=== PATIENT | female | born 1975 | race Caucasian/White ===

== ENCOUNTER 2017-07-18 20:49 | Emergency (ER) | payer BC, OTHER ==
[2017-07-18 20:55] VITALS: BP 105/71
[2017-07-18 21:39] LABS: CHLORIDE,CL 100 mmol/L (98-107); SODIUM,NA 134 mmol/L (136-145)
[2017-07-18] MEDS ORDERED: Potassium Chloride 10 MEQ Tab.ER PO ONE (22:21)
[2017-07-18] MEDS ORDERED: Ketorolac 60 MG/2 ML SDV IM ONE (22:21)
--- NOTE | 2017-07-18 22:26 | EDM.PDOC ---
ED HPI GENERAL MEDICAL PROBLEM - General Chief Complaint: General Stated Complaint: chest, back pain, dyspnea Time Seen by Provider: 07/18/17 21:19 - History of Present Illness INITIAL COMMENTS - FREE TEXT/NARRATIVE: Patient developed mid back pain near bra line earlier today. Gradually worsened in intensity. Eventually it felt like the pain wrapped around to the front. Breathing deeply aggravated pain, but patient denies symptoms such as actual wheezing or sensation that she cannot breathe. Pain is to left of midline. No history of similar pain per patient. No recent trauma, new lifting, change in activity. No illness. She does however work at the [employer] home and has some lifting there. No other complaints. 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: Reports: Acetaminophen, Other Medication(s) Chest Pain Score (Numeric/FACES): 10 - Related Data Allergies Allergy/AdvReac Type Severity Reaction Status Date / Time No Known Allergies Allergy Verified 07/18/17 20:50 Home Meds: Home Meds MV,Ca,Min/Iron Fum/FA/Vit K [Multi For Her Tablet] 1 tab PO DAILY 03/21/15 [ History] clonazePAM [Clonazepam] 1 mg PO BEDTIME 10/19/15 [History] Acetaminophen [Tylenol Arthritis Pain] 1,300 mg PO Q8H PRN 07/18/17 [History] oxyCODONE 5 mg PO Q6H PRN 07/18/17 [History] Past Medical History Gastrointestinal History: Reports: Colon Polyp, Other (See Below) Other Gastrointestinal History: UC Musculoskeletal History: Reports: Neck Pain, Chronic Immunologic History: Reports: Immunosuppression - Infectious Disease History Infectious Disease History: Reports: Measles - Past Surgical History HEENT Surgical History: Reports: Tonsillectomy Female Surgical History: Reports: Breast Implant, Section, Hysterectomy, Tubal Ligation Social & Family History - Tobacco Use Smoking Status *Q: Current Every Day Smoker Years of Tobacco use: 20 Packs/Tins Daily: 0.3 Used Tobacco, but Quit: Yes Month Tobacco Last Used: 03 Second Hand Smoke Exposure: Yes - Caffeine Use Caffeine Use: Reports: Coffee, Soda - Alcohol Use Days Per Week of Alcohol Use: 0 (No previous DWI, etc.) - Recreational Drug Use Recreational Drug Use: No Drug Use in Last 12 Months: No - Living Situation & Occupation Living situation: Reports: , Occupation: Employed ED ROS GENERAL - Review of Systems Review Of Systems: See Below Constitutional: Reports: No Symptoms. Denies: Fever, Chills, Weakness, Fatigue , Night Sweats, Diaphoresis, Decreased Appetite, Weight Loss HEENT: Reports: No Symptoms. Denies: Rhinitis, Throat Pain Respiratory: Reports: Shortness of Breath (deep breath makes pain worse. ), Pleuritic Chest Pain. Denies: Wheezing, Cough, Sputum, Hemoptysis Cardiovascular: Reports: Chest Pain (across chest). Denies: Dyspnea on Exertion , Edema, Lightheadedness, Palpitations, Syncope GI/Abdominal: Reports: No Symptoms : Reports: No Symptoms Musculoskeletal: Reports: Neck Pain (chronic, unchanged. ), Back Pain (see HPI) , Muscle Pain. Denies: Shoulder Pain, Arm Pain, Hand Pain, Leg Pain, Joint Pain , Joint Swelling, Muscle Stiffness Skin: Reports: No Symptoms Neurological: Reports: Other (Patient has noticed that she cannot dorsiflex left foot as high as the right for the past 6+ months). Denies: Confusion, Dizziness, Headache, Numbness, Paresthesia, Syncope, Tremors, Trouble Speaking, Difficulty Walking Psychiatric: Reports: No Symptoms Hematologic/Lymphatic: Reports: No Symptoms ED EXAM, GENERAL - Physical Exam Exam: See Below Exam Limited By: No Limitations General Appearance: Alert, WD/WN, No Apparent Distress Eye Exam: Bilateral Eye: EOMI, PERRL Ears: Normal External Exam, Normal Canal Nose: Normal Inspection, Normal Mucosa, No Blood Throat/Mouth: Normal Inspection, Normal Lips, Normal Voice, No Airway Compromise Head: Atraumatic, Normocephalic Neck: Normal Inspection, Supple, Non-Tender, Full Range of Motion. No: Tender Lateral, Tender Midline Respiratory/Chest: No Respiratory Distress, Lungs Clear, Normal Breath Sounds, No Accessory Muscle Use, Chest Non-Tender Cardiovascular: Normal Peripheral Pulses, Regular Rate, Rhythm, No Edema, No Murmur Peripheral Pulses: 2+: Radial (L), Radial (R) GI/Abdominal: Normal Bowel Sounds, Soft, Non-Tender, No Distention (Female) Exam: Deferred Rectal (Female) Exam: Deferred Back Exam: Paraspinal Tenderness (to left of spine around left scapula). No: Muscle Spasm, Vertebral Tenderness Extremities: Normal Inspection, Non-Tender, Normal Capillary Refill Neurological: Alert, Oriented, Normal Cognition, Normal Gait, No Motor/Sensory Deficits Psychiatric: Normal Affect, Normal Mood Skin Exam: Warm, Dry, Intact, Normal Color EKG INTERPRETATION EKG Date: 07/18/17 Time: 21:03 Rhythm: NSR Rate (Beats/Min): 88 Irons: Normal P-Wave: Present QRS: Normal ST-T: Normal QT: Normal Comparison: No Change Course - Vital Signs Last Recorded V/S: Last Vital Signs Temp 37.0 C 07/18/17 20:54 Pulse 87 07/18/17 20:54 Resp 17 07/18/17 20:54 BP 105/71 07/18/17 20:54 Pulse Ox 100 07/18/17 20:54 - Orders/Labs/Meds Orders: Active Orders 24 hr Category Date Time Status EKG Documentation Completion [RC] STAT Care 07/18/17 20:56 Active Chest 2V [CR] Stat Exams 07/18/17 20:55 Taken EKG 12 Lead [EK] Stat Ther 07/18/17 20:56 Ordered Labs: Laboratory Tests 07/18/17 07/18/17 07/18/17 Range/Units 20:57 21:10 21:10 WBC (4.0-10.2) K/uL RBC (3.77-5.09) M/uL Hgb (11.7-15.5) g/dL Hct (34.0-46.0) % MCV (84.0-98.0) fL MCH (28.2-33.3) pg MCHC (31.7-36.0) g/dL RDW (11.2-14.1) % Plt Count (150-350) K/uL Neut % (Auto) (45.0-80.0) % Lymph % (Auto) (10.0-50.0) % Webb % (Auto) (2.0-14.0) % Eos % (Auto) (0.0-5.0) % Baso % (Auto) (0.0-2.0) % Neut # (Auto) (1.40-7.00) K/uL Lymph # (Auto) (0.50-3.50) K/uL Webb # (Auto) (0.00-1.00) K/uL Eos # (Auto) (0.00-0.50) K/uL Baso # (Auto) (0.00-0.20) K/uL D-Dimer, Quantitative 393 (0-400) ng/mL Sodium (136-145) mmol/L Potassium (3.5-5.1) mmol/L Chloride (98-107) mmol/L Carbon Dioxide (21.0-32.0) mmol/L BUN (7-18) mg/dL Creatinine (0.51-1.17) mg/dL Est Cr Clr Drug Dosing Estimated GFR (MDRD) mL/min Glucose (74-106) mg/dL Calcium (8.5-10.1) mg/dL Total Bilirubin (0.2-1.0) mg/dL AST (15-37) U/L ALT (12-78) U/L Alkaline Phosphatase (46-116) IU/L Creatine Kinase (26-308) U/L Creatine Kinase Index (0.0-2.5) % CK-MB (CK-2) (0.00-3.60) ng/mL Troponin I 0.000 (0.000-0.056) ng/mL Total Protein (6.4-8.2) g/dL Albumin (3.4-5.0) g/dL Specimen Type Urincc Urine Color Yellow Urine Appearance Clear Urine pH 6.0 (5.0-9.0) Ur Specific Orient 1.025 (1.005-1.030) Urine Protein Trace H (NEGATIVE) mg/dL Urine Glucose (UA) 100 H (NEGATIVE) mg/dL Urine Ketones Negative (NEGATIVE) mg/dL Urine Occult Blood Negative (NEGATIVE) Urine Nitrite Negative (NEGATIVE) Urine Bilirubin Negative (NEGATIVE) Urine Urobilinogen 0.2 (0.2-1.0) E.U./dL Ur Leukocyte Esterase Negative (NEGATIVE) Urine RBC 0-5 /HPF Urine WBC 0-5 /HPF Ur Epithelial Cells Rare /LPF Urine Bacteria Rare (NONE TO FEW) /HPF 07/18/17 07/18/17 Range/Units 21:10 21:20 WBC 12.8 H (4.0-10.2) K/uL RBC 3.81 (3.77-5.09) M/uL Hgb 12.0 (11.7-15.5) g/dL Hct 35.7 (34.0-46.0) % MCV 93.7 (84.0-98.0) fL MCH 31.5 (28.2-33.3) pg MCHC 33.6 (31.7-36.0) g/dL RDW 12.5 (11.2-14.1) % Plt Count 216 (150-350) K/uL Neut % (Auto) 70.7 (45.0-80.0) % Lymph % (Auto) 20.8 (10.0-50.0) % Webb % (Auto) 8.0 (2.0-14.0) % Eos % (Auto) 0.3 (0.0-5.0) % Baso % (Auto) 0.2 (0.0-2.0) % Neut # (Auto) 9.05 H (1.40-7.00) K/uL Lymph # (Auto) 2.66 (0.50-3.50) K/uL Webb # (Auto) 1.02 H (0.00-1.00) K/uL Eos # (Auto) 0.04 (0.00-0.50) K/uL Baso # (Auto) 0.03 (0.00-0.20) K/uL D-Dimer, Quantitative (0-400) ng/mL Sodium 134 L (136-145) mmol/L Potassium 3.3 L (3.5-5.1) mmol/L Chloride 100 (98-107) mmol/L Carbon Dioxide 26.2 (21.0-32.0) mmol/L BUN 13 (7-18) mg/dL Creatinine 0.75 (0.51-1.17) mg/dL Est Cr Clr Drug Dosing TNP Estimated GFR (MDRD) > 60 mL/min Glucose 129 H (74-106) mg/dL Calcium 8.0 L (8.5-10.1) mg/dL Total Bilirubin 0.3 (0.2-1.0) mg/dL AST 15 (15-37) U/L ALT 20 (12-78) U/L Alkaline Phosphatase 52 (46-116) IU/L Creatine Kinase 56 (26-308) U/L Creatine Kinase Index 0.4 (0.0-2.5) % CK-MB (CK-2) 0.20 (0.00-3.60) ng/mL Troponin I (0.000-0.056) ng/mL Total Protein 6.8 (6.4-8.2) g/dL Albumin 3.7 (3.4-5.0) g/dL Specimen Type Urine Color Urine Appearance Urine pH (5.0-9.0) Ur Specific Orient (1.005-1.030) Urine Protein (NEGATIVE) mg/dL Urine Glucose (UA) (NEGATIVE) mg/dL Urine Ketones (NEGATIVE) mg/dL Urine Occult Blood (NEGATIVE) Urine Nitrite (NEGATIVE) Urine Bilirubin (NEGATIVE) Urine Urobilinogen (0.2-1.0) E.U./dL Ur Leukocyte Esterase (NEGATIVE) Urine RBC /HPF Urine WBC /HPF Ur Epithelial Cells /LPF Urine Bacteria (NONE TO FEW) /HPF Meds: Medications Discontinued Medications Generic Name Dose Route Start Last Admin Trade Name Freq PRN Reason Stop Dose Admin Ketorolac Tromethamine 60 mg 07/18/17 22:21 07/18/17 22:36 Toradol IM 07/18/17 22:22 60 mg ONETIME ONE Administration Potassium Chloride 20 meq 07/18/17 22:21 07/18/17 22:35 Klor-Con 10 PO 07/18/17 22:22 20 meq ONETIME ONE Administration - Radiology Interpretation Free Text/Narrative:: Chest film unremarkable for acute changes. - Re-Assessments/Exams Free Text/Narrative Re-Assessment/Exam: 07/18/17 22:38 DDimer/Troponin/CKMB negative. No acute ST changes noted on EKG. Patient complaint reproducible with pressure over soft tissue around left scapula. Suspect soft tissue/musculoskeletal cause for patient's complaint. Discussed differential with patient. Toradol given in ER. Patient sent home with take home bottle of Tramadol. She is considering visiting her chiropractor tomorrow. Precautions reviewed prior to discharge. She is to follow up in ER if she has sudden acute worsening problems, otherwise she is to follow up with her primary provider within 1-2 weeks. Departure - Departure Time of Disposition: 22:33 Disposition: Home, Self-Care 01 Condition: Good Clinical Impression: Chest pain, atypical Back pain Qualifiers: Back pain location: thoracic back pain Chronicity: acute Back pain laterality: left Qualified Code(s): M54.6 - Pain in thoracic spine - Discharge Information Instructions: Nonspecific Chest Pain, Thoracic Strain, [id number] Referrals: Rick Melara PA [Primary Care Provider] - Forms: ED Department Discharge, ED Return to Work/School Form Additional Instructions: Icing sore area may help over the next few days. Pressure with tennis ball may also be helpful. Consider chiropractor or massage therapy. Follow up with your primary doctor within the next few days if symptoms persist. Follow up otherwise as needed if you note sudden worsening problems/ new symptoms. Consider taking some extra potassium supplementation, 10-20meq per day. Have potassium rechecked in 10-14 days at your primary provider's office. - My Orders Last 24 Hours: My Active Orders 07/18/17 20:55 Chest 2V [CR] Stat 07/18/17 20:56 EKG Documentation Completion [RC] STAT EKG 12 Lead [EK] Stat - Assessment/Plan Last 24 Hours: My Active Orders 07/18/17 20:55 Chest 2V [CR] Stat 07/18/17 20:56 EKG Documentation Completion [RC] STAT EKG 12 Lead [EK] Stat
== END 2017-07-18 23:04 | disposition home or self-care (01) ==
LOC: LL.ED 20:49
DX: R07.89 Other chest pain (principal); M54.6 Pain in thoracic spine; F17.210 Nicotine dependence, cigarettes, uncomplicated; Z79.899 Other long term (current) drug therapy; Z90.89 Acquired absence of other organs; Z90.710 Acquired absence of both cervix and uterus
CPT/HCPCS: 36415; 71020; 80053; 81001; 82550; 82553; 84484; 85025; 85379; 93005; 96372; 99285; A9270; J1885

== ENCOUNTER 2018-03-07 15:54 | Observation (INO) | payer BC ==
[2018-03-07] MEDS ORDERED: Famotidine 20 MG/2 ML SDV IVPUSH ONE (16:13)
[2018-03-07] MEDS ORDERED: Ticagrelor 90 MG Tab PO ONE (16:13)
[2018-03-07] MEDS ORDERED: Sodium Chloride 0.9% 10 ML Syringe FLUSH PRN ×2 (16:13→17:38)
[2018-03-07] MEDS ORDERED: Aspirin 81 MG Tab.Chew CHEW ONE (16:13)
--- NOTE | 2018-03-07 16:13 | EDM.PDOC ---
ED HPI GENERAL MEDICAL PROBLEM - General Chief Complaint: Cardiovascular Problem Stated Complaint: palpations Time Seen by Provider: 03/07/18 16:05 Source of Information: Reports: Patient, Family (), Old Records ([facility] chart/EMR) History Limitations: Reports: No Limitations - History of Present Illness INITIAL COMMENTS - FREE TEXT/NARRATIVE: Patient was brought to the emergency room via private automobile by her for evaluation of sudden onset tachycardia with heart rate of 170s and systolic blood pressure in the 190s at work at about 15:30 hours. The patient was not performing any strenuous duties at that time. She has had possible symptoms of intermittent arrhythmia for the last several years, however this has not been specifically diagnosed. She does complain of nonspecific retrosternal 4/10 chest discomfort radiating to the neck bilaterally and both shoulders. The patient denies any dizziness, orthostasis, orthopnea, diaphoresis, paresthesias , recent decreased exercise tolerance, or any other anginal-type symptoms. No recent history of abdominal pain, heartburn, nausea, diarrhea, melena, gross hematochezia, or any food intolerance, including fatty foods, etc. with normal bowel movement yesterday. The patient also denies any recent fever, cough, wheezing, dyspnea, etc. with the patient not using any recent cold medications, excessive caffeine use, etc. Onset: Today, Sudden Onset Date: 03/07/18 Onset Time: 15:30 Duration: Constant Location: Reports: Neck, Chest, Upper Extremity, Left, Upper Extremity, Right, Radiates to (As above). Denies: Head, Face, Abdomen, Back, Pelvis Quality: Reports: Pressure Severity: Mild Improves with: Reports: None Worsens with: Reports: None Context: Reports: Other (As above) Associated Symptoms: Reports: Chest Pain. 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 Denies: Afib, Aneurysm, Arrhythmia, Blood Clots/VTE/DVT, CAD, Heart Murmur, High Cholesterol, Hypertension, RI, Syncope Other Cardiovascular History: History of varicose veins Respiratory History: Reports: COPD, Intubation, Previous, Other (See Below). Denies: Asthma, Intubation, Difficult, PE, Pneumothorax, Sleep Apnea, TB Other Respiratory History: COPD by chest x-ray on 03/21/15 Gastrointestinal History: Reports: Colon Polyp, GI Bleed, Inflammatory Bowel Disease, Other (See Below). Denies: Celiac Disease, Cholelithiasis, Chronic Constipation, Chronic Diarrhea, Gastritis, GERD, Hepatitis, Irritable Bowel Syndrome, Jaundice, Pancreatitis, PUD Other Gastrointestinal History: Ulcerative colitis initially diagnosed in about 1998 by colonoscopy with history of recurrent mild lower GI bleeds last episode on 11/20/12. Benign colonic polyp in 2017 Genitourinary History: Reports: Renal Calculus, Other (See Below) Other Genitourinary History: Left-sided urolithiasis on 01/24/15 with spontaneous passage [employer]IC History: Reports: Dysfunctional Uterine Bleeding, Endometriosis, . Denies: Spontaneous : 2 Para: 2 LMP (Approximate): Other (See Below) Other OB/BYN History: Surgical menopause in very to endometriosis. No problems during with full term with second , however full term C- section secondary to breech position and first . Moderate bilateral ovarian cysts Musculoskeletal History: Reports: Arthritis, Neck Pain, Chronic, Osteoarthritis , Other (See Below). Denies: Back Pain, Chronic, Gout, RA, SLE Other Musculoskeletal History: Right ankle fracture 1992 Neurological History: Reports: None. Denies: Cerebral Aneurysms, Concussion, CVA, Headaches, Chronic, Head Trauma, Migraines, MS, Neuropathy, Peripheral, Parkinson's, Seizure, TIA Psychiatric History: Reports: Anxiety, Depression. Denies: Abuse, Victim of, ADD, ADHD, Addiction, Psych Hospitalization(s), PTSD, Suicide Attempt, Suicidal Ideation Endocrine/Metabolic History: Reports: None. Denies: Diabetes, Gestational, Diabetes, Type I, Diabetes, Type II, Diabetes Mellitus, Type 3c, Hypothyroidism , IDDM Hematologic History: Reports: Anemia, Iron Deficiency. Denies: Blood Transfusion(s) Immunologic History: Reports: Immunosuppression, Other (See Below) Other Immunologic History: Venous suppression secondary to current medical therapy for her ulcerative colitis Oncologic (Cancer) History: Reports: None. Denies: Basal Cell Carcinoma, Breast , Cervix, Colon, Hodgkin's Lymphoma, Leukemia, Lymphoma, Malignant Melanoma, Non -Hodgkin's Lymphoma, Ovarian, Squamous Cell Carcinoma, Uterine Dermatologic History: Reports: None. Denies: Eczema, Psoriasis - Infectious Disease History Infectious Disease History: Reports: Measles. Denies: C-Difficile, Chicken Pox , Meningitis, Mononucleosis, MRSA, Mumps, Pertussis (Whooping Cough), Rheumatic Fever, Rubella, Scarlet Fever, Shingles, TB, VRE - Past Surgical History Head Surgeries/Procedures: Reports: None HEENT Surgical History: Reports: Adenoidectomy, Oral Surgery, Tonsillectomy, Other (See Below). Denies: Cataract Surgery, Eye Surgery, Laser Surgery, LASIK , Myringotomy w Tube(s), Naso-Sinus Surgery Other HEENT Surgeries/Procedures: Tonsillectomy at about age 10. [place] teeth extraction 4 at about age 12 Cardiovascular Surgical History: Reports: None. Denies: Varicose Respiratory Surgical History: Reports: None. Denies: Lung Biopsies, Thoracentesis GI Surgical History: Reports: Colonoscopy, Polypectomy, Other (See Below). Denies: Appendectomy, Cholecystectomy, EGD, Hernia, Abdominal, Hernia, Inguinal , Hernia Repair/Other Other GI Surgeries/Procedures: Last colonoscopy in 2017 with polypectomy at that time with previous colonoscopy in 2013 with no polyps at that time Female Surgical History: Reports: Breast Implant, Section, Hysterectomy, Tubal Ligation, Other (See Below). Denies: Cystoscopy, D&C, Oophorectomy, Salpingo-Oophorectomy Other Female Surgeries/Procedures: section in 1997. Hysterectomy secondary to endometriosis and dysfunctional uterine bleeding in about 2008. Bilateral tubal ligation in about 2007. Bilateral breast implants in 2007 Endocrine Surgical History: Reports: None. Denies: Thyroid Biopsy Musculoskeletal Surgical History: Reports: None. Denies: Arthroscopic Knee, Carpal Tunnel, Ganglion Cyst, Joint Replacement, ORIF, Shoulder Surgery Oncologic Surgical History: Reports: None Dermatological Surgical History: Reports: None - Past Imaging History Past Imaging History: Reports: Mammogram (Last mammogram on 09/25/15), MRI (MRI of the lumbar spine on 08/09/17. MRI of the left leg on 09/13/17), Ultrasound ( Pelvic ultrasound on 10/22/15 and 09/25/15). Denies: Angiography, Cardiac Echo , Stress Testing Social & Family History - Family History HEENT: Reports: None. Denies: Glaucoma, Macular Degeneration, Retinal Detachment Cardiac: Reports: CAD, Hypertension, RI, Pacemaker, Stent, Other (See Below). Denies: Afib, Aneurysm, Arrhythmia, Blood Clots/VTE/DVT, Bypass, Heart Failure, Heart Murmur, High Cholesterol, PVD/COD Other Cardiac Family History: Father with RI at age 74 with history of PTCA/ stent at that time. Mother with hypertension. Maternal grandmother with pacemaker Respiratory: Reports: COPD, Sleep Apnea, Other (See Below). Denies: Asthma, PE , Pneumothorax Other Respiratory Family Hisory: Father with history of asbestos exposure, COPD , and sleep apnea GI: Reports: Other (See Below). Denies: Celiac Disease, Cholelithiasis, Colon Polyps, GERD, GI bleed, Inflammatory Bowel Disease, Irritable Bowel Syndrome, PUD Other GI Family History: Brother and paternal uncle with ulcerative colitis : Reports: None. Denies: Dialysis, Renal Calculus, Renal Disease/ Insufficiency OBGYN: Reports: None. Denies: Endometriosis, Recurrent Spontaneous Musculoskeletal: Reports: None. Denies: Gout, RA, SLE Neurological: Reports: None. Denies: Alzheimers Disease, CVA, Dementia, Migraines, MS, Parkinson's, Seizure, TIA Psychiatric: Reports: Anxiety, Depression, Other (See Below). Denies: Abuse, Victim of, ADD, ADHD, Psych Hospitalization(s), PTSD, Suicide Attempt Other Psychiatric Family History: Anxiety depression disorder in sister, brother , and mother. Endocrine/Metabolic: Reports: Diabetes, type II, Hypothyroidism, IDDM, Other ( See Below) Other Endocrine/Metabolic Family History: Paternal grandmother with IDDM. Sister with hypothyroidism Hematologic: Reports: None. Denies: Anemia, SLE Immunologic: Reports: None. Denies: AIDS, HIV, SLE Dermatologic: Reports: None. Denies: Eczema, Psoriasis Oncologic: Reports: Colon, Leukemia, Lung, Other (See Below) Other Oncologic Family History: Fatal colon cancer in maternal grandfather in his 80s. Paternal aunt with leukemia. Paternal grandfather with fatal lung cancer in his 70s possibly secondary to tobacco use. - Tobacco Use Smoking Status *Q: Current Every Day Smoker Tobacco Use Within Last Twelve Months: Cigarettes Years of Tobacco use: 27 Packs/Tins Daily: 0.5 Packs/Tins Daily Comment: Started smoking at age 15 with maximum use of one pack per day Used Tobacco, but Quit: Yes Month/Year Tobacco Last Used: 03 Smoking Cessation Information Provided To Patient: Yes Second Hand Smoke Exposure: Yes Second Hand Smoke Education Provided: Yes - Caffeine Use Caffeine Use: Reports: Coffee (2 cups per day), Soda (1 soda per day). Denies: Energy Drinks, Tea - Alcohol Use Alcohol Use History: No Days Per Week of Alcohol Use: 0 (Previous DWI in 2004 with no previous problems with alcohol abuse or treatment) Number of Drinks Per Day: 0 Number of Drinks Per Day Comment: Does not drink any alcohol currently Total Drinks Per Week: 0 Alcohol Use in Last Twelve Months: No - Recreational Drug Use Recreational Drug Use: No Drug Use in Last 12 Months: No Recreational Drug Type: Reports: Amphetamines (Speed). 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 ED EXAM, GENERAL - Physical Exam Exam: See Below Exam Limited By: No Limitations General Appearance: Alert, WD/WN, No Apparent Distress, Anxious (Mild to moderate) Eye Exam: Bilateral Eye: EOMI, Normal Inspection (No Nystagmus), PERRL Ears: Normal External Exam, Normal Canal, Hearing Grossly Normal, Normal TMs Nose: Normal Inspection, Normal Mucosa, No Blood Throat/Mouth: Normal Inspection, Normal Lips, Normal Teeth, Normal Gums, Normal Oropharynx, Normal Voice, No Airway Compromise. No: Dysphagia, Inflammation, Perioral Cyanosis Head: Atraumatic, Normocephalic. No: Facial Swelling, Facial Tenderness, Sinus Tenderness Neck: Normal Inspection, Supple, Non-Tender, Full Range of Motion. No: Carotid Bruit, Lymphadenopathy (L), Lymphadenopathy (R), Thyromegaly Respiratory/Chest: No Respiratory Distress, Lungs Clear, Normal Breath Sounds, No Accessory Muscle Use, Chest Non-Tender. No: Pleural Rub, Retractions Cardiovascular: Normal Peripheral Pulses, No Edema, No Gallop, No JVD, No Murmur , No Rub, Tachycardia. No: Gallop/S3, Gallop/S4, Friction Rub Peripheral Pulses: 2+: Radial (L), Radial (R), Dorsalis Pedis (L), Dorsalis Pedis (R) GI/Abdominal: Normal Bowel Sounds, Soft, Non-Tender, No Organomegaly, No Distention, No Abnormal Bruit, No Mass, Pelvis Stable, Other (obese). No: Guarding (Female) Exam: Deferred Rectal (Female) Exam: Deferred Back Exam: Normal Inspection, Full Range of Motion. No: CVA Tenderness (L), CVA Tenderness (R), Muscle Spasm Extremities: Normal Inspection, Normal Range of Motion, Non-Tender, No Pedal Edema, Normal Capillary Refill. No: Keyona's Sign Neurological: Alert, Oriented, CN II-XII Intact, Normal Cognition, Normal Gait, Normal Reflexes (Negative Babinski's), No Motor/Sensory Deficits Psychiatric: Anxious (Mild to moderate). No: Depressed Mood Skin Exam: Warm, Dry, Intact, Normal Color, No Rash. No: Diaphoretic, Ecchymosis, Pallor, Petechiae, Wound/Incision Lymphatic: No Adenopathy EKG INTERPRETATION EKG Date: 03/07/18 Time: 16:24 Rhythm: NSR Rate (Beats/Min): 82 [place]: Normal (Neutral) P-Wave: Enlarged (Moderate diffuse biphasic P waves with new pulmonary hypertension by EKG since last EKG on 07/18/17) QRS: Normal (QRS interval 0.07 seconds with T-wave inversion in lead V1) ST-T: Normal (As above. Nonspecific ST changes with no current digoxin therapy) QT: Normal GA/PQ Interval: 0.16 seconds Comparison: Change From Previous EKG (As above) EKG Interpretation Comments: 1. No acute ischemic changes 2. Atrial enlargement-left 3. Pulmonary hypertension by EKG Course - Vital Signs Last Recorded V/S: Last Vital Signs Temp 36.8 C 03/07/18 16:00 Pulse 76 03/07/18 16:34 Resp 20 03/07/18 16:00 BP 108/75 03/07/18 16:34 Pulse Ox 98 03/07/18 16:00 - Orders/Labs/Meds Orders: Active Orders 24 hr Category Date Time Status Cardiac Monitoring [RC] . DIRECTED Care 03/07/18 16:13 Active EKG Documentation Completion [RC] ASDIRECTED Care 03/07/18 16:13 Active Peripheral IV Care [RC] . DIRECTED Care 03/07/18 16:13 Active Pulse Oximetry [RC] CONTINUOUS Care 03/07/18 16:13 Active Up With Assistance [RC] PFP Care 03/07/18 16:13 Active Vital Signs [RC] PFP Care 03/07/18 16:13 Active Nothing per Oral Now Diet [DIET] Diet 03/07/18 Breakfast Active Chest 1V Frontal [CR] Stat Exams 03/07/18 16:13 Ordered LACTIC ACID [CHEM] Stat Lab 03/07/18 16:13 Ordered Sodium Chloride 0.9% [Saline Flush] Med 03/07/18 16:13 Active 10 ml FLUSH ASDIRECTED PRN Obtain Past Medical Record [OM.PC] Urgent Oth 03/07/18 16:13 Active Peripheral IV Insertion Adult [OM.PC] Stat Oth 03/07/18 16:13 Ordered Resuscitation Status Stat Resus Stat 03/07/18 16:13 Ordered EKG 12 Lead [EK] Stat Ther 03/07/18 16:13 Ordered Medication Orders Sodium Chloride (Saline Flush) 10 ml FLUSH ASDIRECTED PRN PRN Reason: Keep Vein Open Last Admin: 03/07/18 16:23 Dose: 10 ml Labs: Laboratory Tests 03/07/18 03/07/18 03/07/18 Range/Units 16:10 16:10 16:10 WBC 9.8 (4.0-10.2) K/uL RBC 4.47 (3.77-5.09) M/uL Hgb 13.6 D (11.7-15.5) g/dL Hct 39.6 (34.0-46.0) % MCV 88.6 D (84.0-98.0) fL MCH 30.4 (28.2-33.3) pg MCHC 34.3 (31.7-36.0) g/dL RDW 13.2 (11.2-14.1) % Plt Count 227 (150-350) K/uL Neut % (Auto) 63.1 (45.0-80.0) % Lymph % (Auto) 29.0 (10.0-50.0) % [place] % (Auto) 6.8 (2.0-14.0) % Eos % (Auto) 0.8 (0.0-5.0) % Baso % (Auto) 0.3 (0.0-2.0) % Neut # (Auto) 6.17 (1.40-7.00) K/uL Lymph # (Auto) 2.84 (0.50-3.50) K/uL [place] # (Auto) 0.67 (0.00-1.00) K/uL Eos # (Auto) 0.08 (0.00-0.50) K/uL Baso # (Auto) 0.03 (0.00-0.20) K/uL PT 10.0 (9.8-11.7) SEC INR 0.9 APTT 24.3 (22.1-29.8) SEC D-Dimer, Quantitative (0-400) ng/mL Sodium 141 (136-145) mmol/L Potassium 3.8 (3.5-5.1) mmol/L Chloride 102 (98-107) mmol/L Carbon Dioxide 31.2 (21.0-32.0) mmol/L BUN 13 (7-18) mg/dL Creatinine 0.80 (0.51-1.17) mg/dL Est Cr Clr Drug Dosing 78.30 mL/min Estimated GFR (MDRD) > 60 mL/min Glucose 102 (74-106) mg/dL Uric Acid 3.5 (2.6-7.2) mg/dL Calcium 8.7 (8.5-10.1) mg/dL Magnesium 2.0 (1.8-2.4) mg/dL Total Bilirubin 0.2 (0.2-1.0) mg/dL AST 20 (15-37) U/L ALT 25 (12-78) U/L Alkaline Phosphatase 75 (46-116) IU/L Creatine Kinase 109 (26-308) U/L Creatine Kinase Index 1.3 (0.0-2.5) % CK-MB (CK-2) 1.40 (0.00-3.60) ng/mL Troponin I 0.000 (0.000-0.056) ng/mL NT-Pro-B Natriuret Pep 54 (0-125) pg/mL Total Protein 7.5 (6.4-8.2) g/dL Albumin 3.9 (3.4-5.0) g/dL TSH, Ultra Sensitive 1.320 (0.358-3.740) mIU/mL 03/07/18 Range/Units 16:13 WBC (4.0-10.2) K/uL RBC (3.77-5.09) M/uL Hgb (11.7-15.5) g/dL Hct (34.0-46.0) % MCV (84.0-98.0) fL MCH (28.2-33.3) pg MCHC (31.7-36.0) g/dL RDW (11.2-14.1) % Plt Count (150-350) K/uL Neut % (Auto) (45.0-80.0) % Lymph % (Auto) (10.0-50.0) % [place] % (Auto) (2.0-14.0) % Eos % (Auto) (0.0-5.0) % Baso % (Auto) (0.0-2.0) % Neut # (Auto) (1.40-7.00) K/uL Lymph # (Auto) (0.50-3.50) K/uL [place] # (Auto) (0.00-1.00) K/uL Eos # (Auto) (0.00-0.50) K/uL Baso # (Auto) (0.00-0.20) K/uL PT (9.8-11.7) SEC INR APTT (22.1-29.8) SEC D-Dimer, Quantitative 250 (0-400) ng/mL Sodium (136-145) mmol/L Potassium (3.5-5.1) mmol/L Chloride (98-107) mmol/L Carbon Dioxide (21.0-32.0) mmol/L BUN (7-18) mg/dL Creatinine (0.51-1.17) mg/dL Est Cr Clr Drug Dosing mL/min Estimated GFR (MDRD) mL/min Glucose (74-106) mg/dL Uric Acid (2.6-7.2) mg/dL Calcium (8.5-10.1) mg/dL Magnesium (1.8-2.4) mg/dL Total Bilirubin (0.2-1.0) mg/dL AST (15-37) U/L ALT (12-78) U/L Alkaline Phosphatase (46-116) IU/L Creatine Kinase (26-308) U/L Creatine Kinase Index (0.0-2.5) % CK-MB (CK-2) (0.00-3.60) ng/mL Troponin I (0.000-0.056) ng/mL NT-Pro-B Natriuret Pep (0-125) pg/mL Total Protein (6.4-8.2) g/dL Albumin (3.4-5.0) g/dL TSH, Ultra Sensitive (0.358-3.740) mIU/mL Meds: Medications Generic Name Dose Route Start Last Admin Trade Name Freq PRN Reason Stop Dose Admin Sodium Chloride 10 ml 03/07/18 16:13 03/07/18 16:23 Saline Flush FLUSH 10 ml ASDIRECTED PRN Administration Keep Vein Open Discontinued Medications Generic Name Dose Route Start Last Admin Trade Name Freq PRN Reason Stop Dose Admin Aspirin 324 mg 03/07/18 16:13 03/07/18 16:19 Aspirin CHEW 03/07/18 16:14 324 mg ONETIME ONE Administration Diltiazem HCl 10 mg 03/07/18 16:15 03/07/18 16:21 Diltiazem IVPUSH 03/07/18 16:16 10 mg ONETIME ONE Administration Diltiazem HCl 120 mg 03/07/18 16:29 03/07/18 16:34 Cardizem Cd PO 03/07/18 16:30 120 mg ONETIME ONE Administration Famotidine 40 mg 03/07/18 16:13 03/07/18 16:25 Pepcid IVPUSH 03/07/18 16:14 40 mg ONETIME ONE Administration Ticagrelor 180 mg 03/07/18 16:13 03/07/18 16:19 Brilinta PO 03/07/18 16:14 180 mg ONETIME ONE Administration - Radiology Interpretation Free Text/Narrative:: [employer] showed probable PSVT with heart rate in the 130s to 140s on arrival with improvement to the 70s to 80s after IV diltiazem. No other ectopy or significant arrhythmia Chest x-ray, portable, shows evidence of mild to moderate COPD changes with no pulmonary infiltrates, pneumothorax, cardiomegaly, CHF, etc. Departure - Departure Time of Disposition: 17:25 Disposition: Refer to Observation Condition: Good Clinical Impression: PSVT (paroxysmal supraventricular tachycardia), Tobacco abuse counseling, Mixed anxiety depressive disorder, Osteoarthritis Chest pain Qualifiers: Chest pain type: unspecified Qualified Code(s): R07.9 - Chest pain, unspecified Ulcerative colitis Qualifiers: Ulcerative colitis location: other ulcerative colitis Digestive disease complication type: without complication Qualified Code(s): K51.80 - Other ulcerative colitis without complications COPD (chronic obstructive pulmonary disease) Qualifiers: COPD type: emphysema Emphysema type: panlobular Qualified Code(s): J43.1 - Panlobular emphysema Referrals: Rick Melara PA [Primary Care Provider] - Forms: ED Department Discharge Care Plan Goals: See plan - Problem List & Annotations (1) Chest pain SNOMED Code(s): 50740501 Code(s): R07.9 - CHEST PAIN, UNSPECIFIED Status: Acute Priority: High Current Visit: Yes Onset Date: 03/07/18 Annotation/Comment:: Nonspecific chest pain likely secondary to her PSVT. Symptoms completely resolved after tachycardia was resolved. Chest pain protocol was initiated in the emergency immediately upon her arrival. Initiate standard rule out RI orders. Consider cardiology consultation. Lipid panel and glycosylated hemoglobin in the a.m. Patient may benefit from Cardiolite stress test Qualifiers: Chest pain type: unspecified Qualified Code(s): R07.9 - Chest pain, unspecified (2) PSVT (paroxysmal supraventricular tachycardia) SNOMED Code(s): 78438145 Code(s): I47.1 - SUPRAVENTRICULAR TACHYCARDIA Status: Acute Priority: High Current Visit: Yes Onset Date: 03/07/18 Annotation/Comment:: Excellent response to medical therapy as above. (3) Ulcerative colitis SNOMED Code(s): 45380000 Code(s): K51.90 - ULCERATIVE COLITIS, UNSPECIFIED, WITHOUT COMPLICATIONS Status: Acute Priority: High Current Visit: Yes Onset Date: 03/22/15 Annotation/Comment:: The patient has been noncompliant with her sulfasalazine for the last several months and discontinued this medication on her own. Medication compliance strongly encouraged. No recent history of GI bleed or significant exacerbation, however. Qualifiers: Ulcerative colitis location: other ulcerative colitis Digestive disease complication type: without complication Qualified Code(s): K51.80 - Other ulcerative colitis without complications (4) Osteoarthritis SNOMED Code(s): 978309451 Code(s): M19.90 - UNSPECIFIED OSTEOARTHRITIS, UNSPECIFIED SITE Status: Chronic Priority: Medium Current Visit: Yes Annotation/Comment:: Stable by patient history Qualifiers: Osteoarthritis location: multiple joints Osteoarthritis type: primary Qualified Code(s): M15.0 - Primary generalized (osteo)arthritis (5) COPD (chronic obstructive pulmonary disease) SNOMED Code(s): 53447688 Code(s): J44.9 - CHRONIC OBSTRUCTIVE PULMONARY DISEASE, UNSPECIFIED Status : Chronic Priority: Medium Current Visit: Yes Annotation/Comment:: COPD by chest x-ray with continued tobacco abuse. Consider PFTs in the future, although no apparent current problems with recurrent bronchitis, etc.. No recent history of fever, bronchitic type symptoms, etc. Qualifiers: COPD type: emphysema Emphysema type: panlobular Qualified Code(s): J43.1 - Panlobular emphysema (6) Mixed anxiety depressive disorder SNOMED Code(s): 566878361 Code(s): F41.8 - OTHER SPECIFIED ANXIETY DISORDERS Status: Acute Priority : Medium Current Visit: Yes Annotation/Comment:: Stable by patient history at this time, despite no current medical therapy. Moderate control during today 's evaluation. Continue to observe closely by her regular provider (7) Tobacco abuse counseling SNOMED Code(s): 497885998, 354899914, [id number] Code(s): Z71.6 - TOBACCO ABUSE COUNSELING Status: Chronic Priority: Medium Current Visit: Yes Annotation/Comment:: Stop all tobacco use VANESSA as directed/per provided information and consider contacting Quit LIne, etc.. Tobacco cessation information to be provided to the patient and her prior to discharge - Problem List Review Problem List Initiated/Reviewed/Updated: Yes - My Orders Last 24 Hours: My Active Orders 03/07/18 16:13 Cardiac Monitoring [RC] . DIRECTED EKG Documentation Completion [RC] ASDIRECTED Peripheral IV Care [RC] . DIRECTED Pulse Oximetry [RC] CONTINUOUS Up With Assistance [RC] PFP Vital Signs [RC] PFP Chest 1V Frontal [CR] Stat LACTIC ACID [CHEM] Stat Sodium Chloride 0.9% [Saline Flush] 10 ml FLUSH ASDIRECTED PRN Obtain Past Medical Record [OM.PC] Urgent Peripheral IV Insertion Adult [OM.PC] Stat Resuscitation Status Stat EKG 12 Lead [EK] Stat 03/07/18 Breakfast Nothing per Oral Now Diet [DIET] - Assessment/Plan Admission H&P: Please use this note as an admission H&P Last 24 Hours: My Active Orders 03/07/18 16:13 Cardiac Monitoring [RC] . DIRECTED EKG Documentation Completion [RC] ASDIRECTED Peripheral IV Care [RC] . DIRECTED Pulse Oximetry [RC] CONTINUOUS Up With Assistance [RC] PFP Vital Signs [RC] PFP Chest 1V Frontal [CR] Stat LACTIC ACID [CHEM] Stat Sodium Chloride 0.9% [Saline Flush] 10 ml FLUSH ASDIRECTED PRN Obtain Past Medical Record [OM.PC] Urgent Peripheral IV Insertion Adult [OM.PC] Stat Resuscitation Status Stat EKG 12 Lead [EK] Stat 03/07/18 Breakfast Nothing per Oral Now Diet [DIET] Assessment:: As above Plan: As above. Extensive precautions were given to the patient and her , who are in agreement with the treatment plan. The patient's condition is stable enough for observation status and general supervision.
[2018-03-07] MEDS ORDERED: Diltiazem 25 MG/5 ML SDV IVPUSH ONE (16:15)
[2018-03-07] MEDS ORDERED: Diltiazem 120 MG Cap.CD PO ONE (16:29)
[2018-03-07 16:43] LABS: CHLORIDE,CL 102 mmol/L (98-107); SODIUM,NA 141 mmol/L (136-145)
[2018-03-07] MEDS ORDERED: Acetaminophen 325 MG Tab PO PRN (17:38)
[2018-03-07] MEDS ORDERED: Temazepam 15 MG Cap PO PRN (17:38)
[2018-03-07] MEDS ORDERED: SULFADIAZINE PO SCH (18:00)
[2018-03-07] MEDS: sulfaSALAzine 500 MG Tab PO SCH (18:35)
[2018-03-08 07:45] VITALS: BP 98/67
[2018-03-08 08:05] LABS: CHLORIDE,CL 106 mmol/L (98-107); SODIUM,NA 140 mmol/L (136-145)
--- NOTE | 2018-03-08 09:02 | PCM.DCSUM1 ---
Discharge Summary - Hospital Course HPI Initial Comments: See emergency room note/admission H&P Brief History: See emergency room note/admission H&P - Discharge Data Discharge Date: 03/08/18 Discharge Disposition: Home, Self-Care 01 Condition: Good - Discharge Diagnosis/Problem(s) (1) Chest pain SNOMED Code(s): 99368205 ICD Code: R07.9 - CHEST PAIN, UNSPECIFIED Status: Acute Priority: High Current Visit: Yes Onset Date: 03/07/18 Problem Details: Negative workup for acute ID. Nonspecific chest pain likely secondary to her PSVT prior to admission. Symptoms completely resolved after tachycardia was resolved. Chest pain protocol was initiated in the emergency immediately upon her arrival. Various therapeutic options were discussed with the patient, who does not wish to have a Cardiolite stress test at this time with close follow-up by her regular provider area. [place] provided. Consider cardiology consultation depending on her clinical course. Lipid panel is morning was good with pending glycosylated hemoglobin this morning secondary to reagent shortage. Qualifiers: Chest pain type: unspecified Qualified Code(s): R07.9 - Chest pain, unspecified (2) PSVT (paroxysmal supraventricular tachycardia) SNOMED Code(s): 21715720 ICD Code: I47.1 - SUPRAVENTRICULAR TACHYCARDIA Status: Acute Priority: High Current Visit: Yes Onset Date: 03/07/18 Problem Details: Excellent response to medical therapy as above. Blood pressure mildly decreased this morning, however nonsymptomatic. Continue to observe closely through her regular provider. The patient was counseled extensively concerning Valsalva maneuver, etc. for breakthrough tachycardia. (3) Ulcerative colitis SNOMED Code(s): 32441406 ICD Code: K51.90 - ULCERATIVE COLITIS, UNSPECIFIED, WITHOUT COMPLICATIONS Status: Acute Priority: High Current Visit: Yes Onset Date: 03/22/15 Problem Details: The patient has been noncompliant with her sulfasalazine for the last several months and discontinued this medication on her own. Medication compliance was once again strongly encouraged. No recent history of GI bleed or significant exacerbation off of her medication with reinitiation of her sulfasalazine at a decreased standard prophylactic regimen. The patient is in agreement with this treatment plan. Qualifiers: Ulcerative colitis location: other ulcerative colitis Digestive disease complication type: without complication Qualified Code(s): K51.80 - Other ulcerative colitis without complications (4) Osteoarthritis SNOMED Code(s): 362503022 ICD Code: M19.90 - UNSPECIFIED OSTEOARTHRITIS, UNSPECIFIED SITE Status: Chronic Priority: Medium Current Visit: Yes Problem Details: Stable by patient history Qualifiers: Osteoarthritis location: multiple joints Osteoarthritis type: primary Qualified Code(s): M15.0 - Primary generalized (osteo)arthritis (5) COPD (chronic obstructive pulmonary disease) SNOMED Code(s): 21493997 ICD Code: J44.9 - CHRONIC OBSTRUCTIVE PULMONARY DISEASE, UNSPECIFIED Status : Chronic Priority: Medium Current Visit: Yes Problem Details: COPD by chest x-ray with continued tobacco abuse. Consider PFTs in the future, although no apparent current problems with recurrent bronchitis, etc.. No recent history of fever, bronchitic type symptoms, etc. Qualifiers: COPD type: emphysema Emphysema type: panlobular Qualified Code(s): J43.1 - Panlobular emphysema (6) Mixed anxiety depressive disorder SNOMED Code(s): 851576903 ICD Code: F41.8 - OTHER SPECIFIED ANXIETY DISORDERS Status: Acute Priority: Medium Current Visit: Yes Problem Details: Stable by patient history at this time, despite no current medical therapy. Moderate control during today's evaluation. Continue to observe closely by her regular provider (7) Tobacco abuse counseling SNOMED Code(s): 411736760, 878280228, 604521012 ICD Code: Z71.6 - TOBACCO ABUSE COUNSELING Status: Chronic Priority: Medium Current Visit: Yes Problem Details: Stop all tobacco use VANESSA as directed/per provided information and consider contacting Quit [employer]ne, etc.. Tobacco cessation information to be provided to the patient and her prior to discharge (8) Hypoalbuminemia SNOMED Code(s): 422042473 ICD Code: E88.09 - OT DISORDERS OF PLASMA-PROTEIN METABOLISM, NEC Status: Acute Priority: Medium Current Visit: Yes Onset Date: 03/08/18 Problem Details: Initiate high-protein Glucerna supplements 2 times a day as snacks or as 1 meal replacement per day. - Patient Summary/Data Operative Procedure(s) Performed: None Complications: None Consults: None Labs Pending at D/C: Glycosylated hemoglobin Recommended Follow-up Testing/Procedures: As per discharge instructions Planned Operative Procedure(s) after DC: None Hospital Course: The patient was admitted to observation status on telemetry with negative workup for acute ID. Note excellent response to Cardizem CD therapy and initial IV Cardizem low-dose injection as per the emergency room note. No recurrence of her chest pain or arrhythmia during this entire hospitalization. Otherwise treatment as above. - Patient Instructions Diet: Heart Healthy Diet (With high protein Glucerna supplements twice a day as snacks or use for 1 meal replacement per day) Activity: As Tolerated Driving: May Drive Today Showering/Bathing: May Shower Notify Provider of: Increased Pain, Nausea and/or Vomiting Other/Special Instructions: 1. Followup with your regular provider, Rick Melara PA-C, at the [facility] in [place], in 7 days as directed for reevaluation and discussion of today's glycosylated hemoglobin results. 2. Consider further heart evaluation, including Cardiolite stress test depending on clinical course and symptoms. 3. Consider lung function tests, PFTs. 4. Stop all tobacco use VANESSA as directed/per provided information and consider contacting Quit [employer]ne, etc.. 5. Work excuse- See Form. 6. Strict compliance with all medical therapy as discussed - Discharge Plan Prescriptions/Med Rec: Diltiazem HCl [Cardizem Cd] 120 mg PO QPM #30 cap.er.24h sulfaSALAzine 500 mg PO TID #90 tablet Home Medications: Home Meds MV,Ca,Min/Iron Fum/FA/Vit K [Multi For Her Tablet] 1 tab PO DAILY 03/21/15 [ History] Acetaminophen [Tylenol] 650 mg PO Q4H PRN tablet 03/08/18 [Rx] Diltiazem HCl [Cardizem Cd] 120 mg PO QPM #30 cap.er.24h 03/08/18 [Rx] sulfaSALAzine 500 mg PO TID #90 tablet 03/08/18 [Rx] Patient Handouts: Supraventricular Tachycardia, Adult, [id number], Chronic Obstructive Pulmonary Disease, [id number], Ulcerative Colitis, Adult, Diltiazem tablets Forms: ED Department Discharge Referrals: Rick Melara PA [Primary Care Provider] - - Discharge Summary/Plan Comment DC Time >30 min.: Yes (Coordination of care ) Discharge Summary/Plan Comment: As above. Extensive precautions were given to the patient, who is in agreement with the treatment plan. See Patient Instructions for further treatment and plan. - General Info Date of Service: 03/08/18 Admission Dx/Problem (Free Text: 1. Chest pain 2. PSVT Functional Status: Reports: Pain Controlled, Tolerating Diet, Ambulating, Urinating. Denies: New Symptoms, Incentive Spirometry Numeric/FACES Score: 0 - Review of Systems General: Reports: No Symptoms. Denies: Fever, Weakness, Fatigue, Malaise, Chills, Night Sweats, Appetite (Appetite good) HEENT: Reports: No Symptoms. Denies: Dysphasia, Ear Pain, Eye Pain, Headaches, Sinus Congestion, Sore Throat, Rhinitis, Visual Changes Pulmonary: Reports: No Symptoms. Denies: Shortness of Breath, Pleuritic Chest Pain, Cough, Wheezing Cardiovascular: Reports: No Symptoms. Denies: Chest Pain, Palpitations, Dyspnea on Exertion, Orthopnea, PND, Edema, Lightheadedness Gastrointestinal: Reports: No Symptoms. Denies: Abdominal Pain, Constipation, Decreased Appetite, Diarrhea, Difficulty Swallowing, Flatus, Hematochezia, Melena, Nausea, Vomiting Genitourinary: Reports: No Symptoms. Denies: Dysuria, Frequency, Burning, Pain , Urgency, Incontinence, Hematuria, Retention, Flank Pain Musculoskeletal: Reports: No Symptoms. Denies: Neck Pain, Shoulder Pain, Arm Pain, Back Pain, Leg Pain Skin: Reports: No Symptoms. Denies: Diaphoresis, Bruising Neurological: Reports: No Symptoms. Denies: Confusion, Dizziness, Headache, Numbness, Paresthesia, Tingling, Weakness Psychiatric: Reports: No Symptoms. Denies: Confusion, Depression, Anxiety, Agitation, Hallucinations - Patient Data Vitals - Most Recent: Last Vital Signs Temp 36.6 C 03/08/18 07:44 Pulse 60 03/08/18 07:44 Resp 16 03/08/18 07:44 BP 98/67 03/08/18 07:44 Pulse Ox 97 03/08/18 07:44 Vital Signs - 24 hr 03/07/18 03/07/18 03/07/18 16:00 16:11 16:26 Temperature [ 36.8 C Oral] Temperature [ Temporal] Pulse, Peripheral Pulse, 142 H 141 H 76 Peripheral [ Apical] Pulse, Peripheral [ Right Pulse Oximetry] Respiratory 20 20 20 Rate Blood Pressure Blood Pressure 116/80 115/78 108/75 [Upper Arm] O2 Sat by Pulse 98 99 99 Oximetry 03/07/18 03/07/18 03/07/18 16:34 16:41 17:02 Temperature [ Oral] Temperature [ Temporal] Pulse, 76 Peripheral Pulse, 80 78 Peripheral [ Apical] Pulse, Peripheral [ Right Pulse Oximetry] Respiratory 22 H 19 Rate Blood Pressure 108/75 Blood Pressure 104/72 98/57 L [Upper Arm] O2 Sat by Pulse 99 99 Oximetry 03/07/18 03/07/18 03/07/18 17:17 17:38 20:00 Temperature [ 36.9 C Oral] Temperature [ Temporal] Pulse, Peripheral Pulse, 80 Peripheral [ Apical] Pulse, 77 Peripheral [ Right Pulse Oximetry] Respiratory 20 16 Rate Blood Pressure Blood Pressure 101/65 114/68 [Upper Arm] O2 Sat by Pulse 100 99 97 Oximetry 03/08/18 03/08/18 03/08/18 00:00 04:00 07:44 Temperature [ 36.6 C Oral] Temperature [ 36.9 C 36.5 C Temporal] Pulse, Peripheral Pulse, Peripheral [ Apical] Pulse, 75 77 60 Peripheral [ Right Pulse Oximetry] Respiratory 16 16 16 Rate Blood Pressure Blood Pressure 100/69 101/63 98/67 [Upper Arm] O2 Sat by Pulse 96 98 97 Oximetry Weight - Most Recent: 78.381 kg I&O - Last 24 hours: Intake & Output 03/07/18 03/08/18 03/08/18 22:59 06:59 14:59 Intake Total 600 Output Total 300 800 350 Balance 300 -800 -350 Imaging Impressions - Last 24 hrs: manager monitoring shows normal sinus rhythm with heart rate in the 70s with no ectopy or arrhythmia Chest x-ray, portable, shows evidence of mild to moderate COPD changes with no pulmonary infiltrates, pneumothorax, cardiomegaly, CHF, etc. Lab Results - Last 24 hrs: Laboratory Results - last 24 hr 03/07/18 03/07/18 03/07/18 Range/Units 16:10 16:10 16:10 WBC 9.8 (4.0-10.2) K/uL RBC 4.47 (3.77-5.09) M/uL Hgb 13.6 D (11.7-15.5) g/dL Hct 39.6 (34.0-46.0) % MCV 88.6 D (84.0-98.0) fL MCH 30.4 (28.2-33.3) pg MCHC 34.3 (31.7-36.0) g/dL RDW 13.2 (11.2-14.1) % Plt Count 227 (150-350) K/uL Neut % (Auto) 63.1 (45.0-80.0) % Lymph % (Auto) 29.0 (10.0-50.0) % [place] % (Auto) 6.8 (2.0-14.0) % Eos % (Auto) 0.8 (0.0-5.0) % Baso % (Auto) 0.3 (0.0-2.0) % Neut # (Auto) 6.17 (1.40-7.00) K/uL Lymph # (Auto) 2.84 (0.50-3.50) K/uL [place] # (Auto) 0.67 (0.00-1.00) K/uL Eos # (Auto) 0.08 (0.00-0.50) K/uL Baso # (Auto) 0.03 (0.00-0.20) K/uL PT 10.0 (9.8-11.7) SEC INR 0.9 APTT 24.3 (22.1-29.8) SEC D-Dimer, Quantitative (0-400) ng/mL Sodium 141 (136-145) mmol/L Potassium 3.8 (3.5-5.1) mmol/L Chloride 102 (98-107) mmol/L Carbon Dioxide 31.2 (21.0-32.0) mmol/L BUN 13 (7-18) mg/dL Creatinine 0.80 (0.51-1.17) mg/dL Est Cr Clr Drug Dosing 78.30 mL/min Estimated GFR (MDRD) > 60 mL/min Glucose 102 (74-106) mg/dL Lactic Acid (0.4-2.0) mmol/L Uric Acid 3.5 (2.6-7.2) mg/dL Calcium 8.7 (8.5-10.1) mg/dL Magnesium 2.0 (1.8-2.4) mg/dL Total Bilirubin 0.2 (0.2-1.0) mg/dL AST 20 (15-37) U/L ALT 25 (12-78) U/L Alkaline Phosphatase 75 (46-116) IU/L Creatine Kinase 109 (26-308) U/L Creatine Kinase Index 1.3 (0.0-2.5) % CK-MB (CK-2) 1.40 (0.00-3.60) ng/mL Troponin I 0.000 (0.000-0.056) ng/mL NT-Pro-B Natriuret Pep 54 (0-125) pg/mL Total Protein 7.5 (6.4-8.2) g/dL Albumin 3.9 (3.4-5.0) g/dL Triglycerides (30-150) mg/dL Cholesterol (100-200) mg/dL LDL Cholesterol, Calc (0-100) mg/dL HDL Cholesterol (40-60) mg/dL TSH, Ultra Sensitive 1.320 (0.358-3.740) mIU/mL 03/07/18 03/07/18 03/07/18 Range/Units 16:10 16:13 21:00 WBC (4.0-10.2) K/uL RBC (3.77-5.09) M/uL Hgb (11.7-15.5) g/dL Hct (34.0-46.0) % MCV (84.0-98.0) fL MCH (28.2-33.3) pg MCHC (31.7-36.0) g/dL RDW (11.2-14.1) % Plt Count (150-350) K/uL Neut % (Auto) (45.0-80.0) % Lymph % (Auto) (10.0-50.0) % [place] % (Auto) (2.0-14.0) % Eos % (Auto) (0.0-5.0) % Baso % (Auto) (0.0-2.0) % Neut # (Auto) (1.40-7.00) K/uL Lymph # (Auto) (0.50-3.50) K/uL [place] # (Auto) (0.00-1.00) K/uL Eos # (Auto) (0.00-0.50) K/uL Baso # (Auto) (0.00-0.20) K/uL PT (9.8-11.7) SEC INR APTT (22.1-29.8) SEC D-Dimer, Quantitative 250 (0-400) ng/mL Sodium (136-145) mmol/L Potassium (3.5-5.1) mmol/L Chloride (98-107) mmol/L Carbon Dioxide (21.0-32.0) mmol/L BUN (7-18) mg/dL Creatinine (0.51-1.17) mg/dL Est Cr Clr Drug Dosing mL/min Estimated GFR (MDRD) mL/min Glucose (74-106) mg/dL Lactic Acid 0.9 (0.4-2.0) mmol/L Uric Acid (2.6-7.2) mg/dL Calcium (8.5-10.1) mg/dL Magnesium (1.8-2.4) mg/dL Total Bilirubin (0.2-1.0) mg/dL AST (15-37) U/L ALT (12-78) U/L Alkaline Phosphatase (46-116) IU/L Creatine Kinase 86 (26-308) U/L Creatine Kinase Index 1.3 (0.0-2.5) % CK-MB (CK-2) 1.10 (0.00-3.60) ng/mL Troponin I 0.000 (0.000-0.056) ng/mL NT-Pro-B Natriuret Pep (0-125) pg/mL Total Protein (6.4-8.2) g/dL Albumin (3.4-5.0) g/dL Triglycerides (30-150) mg/dL Cholesterol (100-200) mg/dL LDL Cholesterol, Calc (0-100) mg/dL HDL Cholesterol (40-60) mg/dL TSH, Ultra Sensitive (0.358-3.740) mIU/mL 03/08/18 03/08/18 Range/Units 06:45 06:45 WBC 7.4 (4.0-10.2) K/uL RBC 4.30 (3.77-5.09) M/uL Hgb 12.9 (11.7-15.5) g/dL Hct 38.2 (34.0-46.0) % MCV 88.8 (84.0-98.0) fL MCH 30.0 (28.2-33.3) pg MCHC 33.8 (31.7-36.0) g/dL RDW 13.0 (11.2-14.1) % Plt Count 205 (150-350) K/uL Neut % (Auto) 62.8 (45.0-80.0) % Lymph % (Auto) 26.9 (10.0-50.0) % [place] % (Auto) 8.7 (2.0-14.0) % Eos % (Auto) 1.1 (0.0-5.0) % Baso % (Auto) 0.5 (0.0-2.0) % Neut # (Auto) 4.66 (1.40-7.00) K/uL Lymph # (Auto) 2.00 (0.50-3.50) K/uL [place] # (Auto) 0.65 (0.00-1.00) K/uL Eos # (Auto) 0.08 (0.00-0.50) K/uL Baso # (Auto) 0.04 (0.00-0.20) K/uL PT (9.8-11.7) SEC INR APTT (22.1-29.8) SEC D-Dimer, Quantitative (0-400) ng/mL Sodium 140 (136-145) mmol/L Potassium 4.1 (3.5-5.1) mmol/L Chloride 106 (98-107) mmol/L Carbon Dioxide 26.0 (21.0-32.0) mmol/L BUN 14 (7-18) mg/dL Creatinine 0.75 (0.51-1.17) mg/dL Est Cr Clr Drug Dosing 83.52 mL/min Estimated GFR (MDRD) > 60 mL/min Glucose 94 (74-106) mg/dL Lactic Acid (0.4-2.0) mmol/L Uric Acid (2.6-7.2) mg/dL Calcium 8.5 (8.5-10.1) mg/dL Magnesium (1.8-2.4) mg/dL Total Bilirubin 0.3 (0.2-1.0) mg/dL AST 8 L (15-37) U/L ALT 21 (12-78) U/L Alkaline Phosphatase 62 (46-116) IU/L Creatine Kinase 66 (26-308) U/L Creatine Kinase Index 1.4 (0.0-2.5) % CK-MB (CK-2) 0.90 (0.00-3.60) ng/mL Troponin I 0.003 (0.000-0.056) ng/mL NT-Pro-B Natriuret Pep (0-125) pg/mL Total Protein 6.3 L (6.4-8.2) g/dL Albumin 3.2 L (3.4-5.0) g/dL Triglycerides 49 (30-150) mg/dL Cholesterol 172 (100-200) mg/dL LDL Cholesterol, Calc 80 (0-100) mg/dL HDL Cholesterol 82 H (40-60) mg/dL TSH, Ultra Sensitive (0.358-3.740) mIU/mL Laboratory Tests 03/07/18 03/07/18 03/07/18 Range/Units 16:10 16:10 16:10 WBC 9.8 (4.0-10.2) K/uL RBC 4.47 (3.77-5.09) M/uL Hgb 13.6 D (11.7-15.5) g/dL Hct 39.6 (34.0-46.0) % MCV 88.6 D (84.0-98.0) fL MCH 30.4 (28.2-33.3) pg MCHC 34.3 (31.7-36.0) g/dL RDW 13.2 (11.2-14.1) % Plt Count 227 (150-350) K/uL Neut % (Auto) 63.1 (45.0-80.0) % Lymph % (Auto) 29.0 (10.0-50.0) % [place] % (Auto) 6.8 (2.0-14.0) % Eos % (Auto) 0.8 (0.0-5.0) % Baso % (Auto) 0.3 (0.0-2.0) % Neut # (Auto) 6.17 (1.40-7.00) K/uL Lymph # (Auto) 2.84 (0.50-3.50) K/uL [place] # (Auto) 0.67 (0.00-1.00) K/uL Eos # (Auto) 0.08 (0.00-0.50) K/uL Baso # (Auto) 0.03 (0.00-0.20) K/uL PT 10.0 (9.8-11.7) SEC INR 0.9 APTT 24.3 (22.1-29.8) SEC D-Dimer, Quantitative (0-400) ng/mL Sodium 141 (136-145) mmol/L Potassium 3.8 (3.5-5.1) mmol/L Chloride 102 (98-107) mmol/L Carbon Dioxide 31.2 (21.0-32.0) mmol/L BUN 13 (7-18) mg/dL Creatinine 0.80 (0.51-1.17) mg/dL Est Cr Clr Drug Dosing 78.30 mL/min Estimated GFR (MDRD) > 60 mL/min Glucose 102 (74-106) mg/dL Lactic Acid (0.4-2.0) mmol/L Uric Acid 3.5 (2.6-7.2) mg/dL Calcium 8.7 (8.5-10.1) mg/dL Magnesium 2.0 (1.8-2.4) mg/dL Total Bilirubin 0.2 (0.2-1.0) mg/dL AST 20 (15-37) U/L ALT 25 (12-78) U/L Alkaline Phosphatase 75 (46-116) IU/L Creatine Kinase 109 (26-308) U/L Creatine Kinase Index 1.3 (0.0-2.5) % CK-MB (CK-2) 1.40 (0.00-3.60) ng/mL Troponin I 0.000 (0.000-0.056) ng/mL NT-Pro-B Natriuret Pep 54 (0-125) pg/mL Total Protein 7.5 (6.4-8.2) g/dL Albumin 3.9 (3.4-5.0) g/dL Triglycerides (30-150) mg/dL Cholesterol (100-200) mg/dL LDL Cholesterol, Calc (0-100) mg/dL HDL Cholesterol (40-60) mg/dL TSH, Ultra Sensitive 1.320 (0.358-3.740) mIU/mL 03/07/18 03/07/18 03/07/18 Range/Units 16:10 16:13 21:00 WBC (4.0-10.2) K/uL RBC (3.77-5.09) M/uL Hgb (11.7-15.5) g/dL Hct (34.0-46.0) % MCV (84.0-98.0) fL MCH (28.2-33.3) pg MCHC (31.7-36.0) g/dL RDW (11.2-14.1) % Plt Count (150-350) K/uL Neut % (Auto) (45.0-80.0) % Lymph % (Auto) (10.0-50.0) % [place] % (Auto) (2.0-14.0) % Eos % (Auto) (0.0-5.0) % Baso % (Auto) (0.0-2.0) % Neut # (Auto) (1.40-7.00) K/uL Lymph # (Auto) (0.50-3.50) K/uL [place] # (Auto) (0.00-1.00) K/uL Eos # (Auto) (0.00-0.50) K/uL Baso # (Auto) (0.00-0.20) K/uL PT (9.8-11.7) SEC INR APTT (22.1-29.8) SEC D-Dimer, Quantitative 250 (0-400) ng/mL Sodium (136-145) mmol/L Potassium (3.5-5.1) mmol/L Chloride (98-107) mmol/L Carbon Dioxide (21.0-32.0) mmol/L BUN (7-18) mg/dL Creatinine (0.51-1.17) mg/dL Est Cr Clr Drug Dosing mL/min Estimated GFR (MDRD) mL/min Glucose (74-106) mg/dL Lactic Acid 0.9 (0.4-2.0) mmol/L Uric Acid (2.6-7.2) mg/dL Calcium (8.5-10.1) mg/dL Magnesium (1.8-2.4) mg/dL Total Bilirubin (0.2-1.0) mg/dL AST (15-37) U/L ALT (12-78) U/L Alkaline Phosphatase (46-116) IU/L Creatine Kinase 86 (26-308) U/L Creatine Kinase Index 1.3 (0.0-2.5) % CK-MB (CK-2) 1.10 (0.00-3.60) ng/mL Troponin I 0.000 (0.000-0.056) ng/mL NT-Pro-B Natriuret Pep (0-125) pg/mL Total Protein (6.4-8.2) g/dL Albumin (3.4-5.0) g/dL Triglycerides (30-150) mg/dL Cholesterol (100-200) mg/dL LDL Cholesterol, Calc (0-100) mg/dL HDL Cholesterol (40-60) mg/dL TSH, Ultra Sensitive (0.358-3.740) mIU/mL 03/08/18 03/08/18 Range/Units 06:45 06:45 WBC 7.4 (4.0-10.2) K/uL RBC 4.30 (3.77-5.09) M/uL Hgb 12.9 (11.7-15.5) g/dL Hct 38.2 (34.0-46.0) % MCV 88.8 (84.0-98.0) fL MCH 30.0 (28.2-33.3) pg MCHC 33.8 (31.7-36.0) g/dL RDW 13.0 (11.2-14.1) % Plt Count 205 (150-350) K/uL Neut % (Auto) 62.8 (45.0-80.0) % Lymph % (Auto) 26.9 (10.0-50.0) % [place] % (Auto) 8.7 (2.0-14.0) % Eos % (Auto) 1.1 (0.0-5.0) % Baso % (Auto) 0.5 (0.0-2.0) % Neut # (Auto) 4.66 (1.40-7.00) K/uL Lymph # (Auto) 2.00 (0.50-3.50) K/uL [place] # (Auto) 0.65 (0.00-1.00) K/uL Eos # (Auto) 0.08 (0.00-0.50) K/uL Baso # (Auto) 0.04 (0.00-0.20) K/uL PT (9.8-11.7) SEC INR APTT (22.1-29.8) SEC D-Dimer, Quantitative (0-400) ng/mL Sodium 140 (136-145) mmol/L Potassium 4.1 (3.5-5.1) mmol/L Chloride 106 (98-107) mmol/L Carbon Dioxide 26.0 (21.0-32.0) mmol/L BUN 14 (7-18) mg/dL Creatinine 0.75 (0.51-1.17) mg/dL Est Cr Clr Drug Dosing 83.52 mL/min Estimated GFR (MDRD) > 60 mL/min Glucose 94 (74-106) mg/dL Lactic Acid (0.4-2.0) mmol/L Uric Acid (2.6-7.2) mg/dL Calcium 8.5 (8.5-10.1) mg/dL Magnesium (1.8-2.4) mg/dL Total Bilirubin 0.3 (0.2-1.0) mg/dL AST 8 L (15-37) U/L ALT 21 (12-78) U/L Alkaline Phosphatase 62 (46-116) IU/L Creatine Kinase 66 (26-308) U/L Creatine Kinase Index 1.4 (0.0-2.5) % CK-MB (CK-2) 0.90 (0.00-3.60) ng/mL Troponin I 0.003 (0.000-0.056) ng/mL NT-Pro-B Natriuret Pep (0-125) pg/mL Total Protein 6.3 L (6.4-8.2) g/dL Albumin 3.2 L (3.4-5.0) g/dL Triglycerides 49 (30-150) mg/dL Cholesterol 172 (100-200) mg/dL LDL Cholesterol, Calc 80 (0-100) mg/dL HDL Cholesterol 82 H (40-60) mg/dL TSH, Ultra Sensitive (0.358-3.740) mIU/mL [facility]O Results - Last 24 hrs: None Med Orders - Current: Current Medications Acetaminophen (Tylenol) 650 mg PO Q4H PRN PRN Reason: Pain Diltiazem HCl (Cardizem Cd) 120 mg PO QPM [facility] Sodium Chloride (Saline Flush) 10 ml FLUSH ASDIRECTED PRN PRN Reason: Keep Vein Open Last Admin: 03/07/18 16:23 Dose: 10 ml Sodium Chloride (Saline Flush) 10 ml FLUSH Q12HR PRN PRN Reason: Keep Vein Open Sulfasalazine (Sulfasalazine) 1,500 mg PO TID [facility] Last Admin: 03/07/18 18:35 Dose: Not Given Temazepam (Restoril) 15 mg PO BEDTIME PRN PRN Reason: Insomnia Discontinued Medications Aspirin (Aspirin) 324 mg CHEW ONETIME ONE Stop: 03/07/18 16:14 Last Admin: 03/07/18 16:19 Dose: 324 mg Diltiazem HCl (Diltiazem) 10 mg IVPUSH ONETIME ONE Stop: 03/07/18 16:16 Last Admin: 03/07/18 16:21 Dose: 10 mg Diltiazem HCl (Cardizem Cd) 120 mg PO ONETIME ONE Stop: 03/07/18 16:30 Last Admin: 03/07/18 16:34 Dose: 120 mg Famotidine (Pepcid) 40 mg IVPUSH ONETIME ONE Stop: 03/07/18 16:14 Last Admin: 03/07/18 16:25 Dose: 40 mg Ticagrelor (Brilinta) 180 mg PO ONETIME ONE Stop: 03/07/18 16:14 Last Admin: 03/07/18 16:19 Dose: 180 mg - Exam Quality Assessment: Reports: Supplemental Oxygen, DVT Prophylaxis. Denies: Central Line/PICC, Urine Catheter, Skin Breakdown, Restraints General: Reports: Alert, Oriented, Cooperative, No Acute Distress HEENT: Reports: Pupils Equal, Pupils Reactive, Mucous Membr. Moist/[place] Neck: Reports: Supple, Trachea Midline, No JVD, No Thyromegaly, +2 Carotid Pulse wo Bruit. Denies: Lymphadenopathy Lungs: Reports: Clear to Auscultation, Normal Respiratory Effort. Denies: Rub Cardiovascular: Reports: Regular Rate, Regular Rhythm, No Murmurs. Denies: Gallops, Rubs GI/Abdominal Exam: Normal Bowel Sounds, Soft, Non-Tender, No Organomegaly, No Distention, No Abnormal Bruit, No Mass, Pelvis Stable, Other (Obese). No: Guarding (Female) Exam: Deferred Rectal (Female) Exam: Deferred Back Exam: Reports: Normal Inspection, Full Range of Motion. Denies: CVA Tenderness (L), CVA Tenderness (R), Muscle Spasm Extremities: Normal Inspection, Normal Range of Motion, Non-Tender, No Pedal Edema, Normal Capillary Refill. No: [place]'s Sign Skin: Reports: Warm, Dry, Intact. Denies: Ecchymosis Neurological: Reports: No New Focal Deficit, Other (No clinical orthostasis) Psy/Mental Status: Reports: Alert, Anxious (Mild to moderate). Denies: Depressed, Agitated, Hallucinations, Withdrawal Symptoms EKG INTERPRETATION EKG Date: 03/08/18 Time: 07:17 Rhythm: NSR Rate (Beats/Min): 61 [place]: Normal (Neutral) P-Wave: Enlarged (Mild diffuse biphasic P waves with mild poor R-wave progression in the anterior leads and resolution of previous pulmonary hypertension) QRS: Normal (0.07 seconds with T-wave inversion in lead V1) ST-T: Normal QT: Normal CT/PQ Interval: 0.15 seconds Comparison: Change From Previous EKG (As above since 03/07/18) EKG Interpretation Comments: 1. No acute ischemic changes 2. Left atrial enlargement 3. Resolution of previous pulmonary hypertension by EKG
[2018-03-08] MEDS: sulfaSALAzine 500 MG Tab PO SCH (09:50)
[2018-03-08] MEDS ORDERED: Diltiazem 120 MG Cap.CD PO SCH (18:00)
== END 2018-03-08 10:40 | disposition home or self-care (01) ==
LOC: LL.ED 15:54 → LL.MS 16:50
PROVIDERS: ADMIT Family Medicine; ATTEND Family Medicine
DX: R07.9 Chest pain, unspecified (principal); I47.1 Supraventricular tachycardia; K51.80 Other ulcerative colitis without complications; M15.0 Primary generalized (osteo)arthritis; J43.1 Panlobular emphysema; F41.8 Other specified anxiety disorders; E88.09 Other disorders of plasma-protein metabolism, not elsewhere classified; I10 Essential (primary) hypertension; F17.210 Nicotine dependence, cigarettes, uncomplicated; Z79.899 Other long term (current) drug therapy
CPT/HCPCS: 36415; 71045; 80053; 80061; 82550; 82553; 83036; 83605; 83735; 83880; 84443; 84484; 84550; 85025; 85379; 85610; 85730; 93005; 96374; 96375; 99285; A9270-GY; G0378; J3490; J7050; S0028

== ENCOUNTER 2018-04-19 10:07 | Emergency (ER) | payer BC ==
[2018-04-19] MEDS ORDERED: Famotidine 20 MG/2 ML SDV IVPUSH ONE (10:29)
[2018-04-19] MEDS ORDERED: Metoprolol Tartrate 5 MG/5 ML SDV IVPUSH ONE (10:29)
--- NOTE | 2018-04-19 10:29 | EDM.PDOC ---
ED HPI GENERAL MEDICAL PROBLEM - General Chief Complaint: Cardiovascular Problem Stated Complaint: tachycardia Time Seen by Provider: 04/19/18 10:20 Source of Information: Reports: Patient, Old Records ([facility] chart/EMR) History Limitations: Reports: No Limitations - History of Present Illness INITIAL COMMENTS - FREE TEXT/NARRATIVE: The patient drove herself to the emergency room via private automobile for evaluation of returned onset of tachycardia, which started at about 09:45 hours this morning while she was at work. She does have a previous history of PSVT with hospitalization in this facility on 03/07 through 03/08/18 in observation status with negative workup for an acute VA at that time. Patient previously responded well to diltiazem therapy, although she stopped this medication on her own about 2 weeks ago secondary to a nonspecific rash on her ankles bilaterally. She denies any recent increased caffeine intake, cold medications, etc. The patient denies any chest pain/pressure, dizziness, orthostasis, orthopnea, diaphoresis, paresthesias, recent decreased exercise tolerance, or any other anginal-type symptoms. No recent history of abdominal pain, heartburn , nausea, diarrhea, melena, gross hematochezia, or any food intolerance, including fatty foods, etc.. She also denies any recent gross hematuria, colic, or other UTI symptoms. The patient also denies any recent fever, cough, wheezing , dyspnea, etc.. No history of recent headaches, visual changes, diplopia, change in mental status, or other change in neurological status. Onset: Today, Sudden Onset Date: 04/19/18 Onset Time: 09:45 Duration: Constant Location: Reports: Other (No pain) Severity: Severe (Tachycardia) Improves with: Reports: None Worsens with: Reports: None Context: Reports: Other (As above) Associated Symptoms: Reports: No Other Symptoms. 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 Denies: Allergic Rhinitis, Cataract , Glaucoma, Hard of Hearing, Impaired Vision, Macular Degeneration, Otitis Media , Retinal Detachment Other HEENT History: Occasional nonspecific "buzzing" in ears bilaterally with no hearing loss Cardiovascular History: Reports: Arrhythmia, Other (See Below). Denies: Afib, Aneurysm, Blood Clots/VTE/DVT, CAD, Heart Failure, Heart Murmur, High Cholesterol, Hypertension, VA, PTCA, PVD, Syncope Other Cardiovascular History: PSVT diagnosed on 03/07/18. History of varicose veins. Respiratory History: Reports: COPD, Intubation, Previous, Other (See Below). Denies: Asthma, Intubation, Difficult, PE, Pneumothorax, Sleep Apnea, TB Other Respiratory History: COPD by chest x-ray on 03/21/15 Gastrointestinal History: Reports: Colon Polyp, GI Bleed, Inflammatory Bowel Disease, Other (See Below). Denies: Bowel Obstruction, Celiac Disease, Cholelithiasis, Chronic Constipation, Chronic Diarrhea, Fecal Incontinence, Gastritis, GERD, Hepatitis, Hiatal Hernia, Irritable Bowel Syndrome, Jaundice, Pancreatitis, PUD Other Gastrointestinal History: Ulcerative colitis initially diagnosed in about 1998 by colonoscopy with history of recurrent mild lower GI bleeds last episode on 11/20/12. Benign colonic polyp in 2017 Genitourinary History: Reports: Renal Calculus, Other (See Below). Denies: Acute Renal Failure, Chronic Renal Insuffiency, Retention, Urinary, STD, Urinary Incontinence, UTI, Recurrent Other Genitourinary History: Left-sided urolithiasis on 01/24/15 with spontaneous passage ARCHAEOLOGIST History: Reports: Dysfunctional Uterine Bleeding, Endometriosis, Polycystic Ovaries, . Denies: Fibroids : 2 Para: 2 LMP (Approximate): Other (See Below) Other OB/BYN History: Surgical menopause secondary to endometriosis. No problems during with full term with second , however full term secondary to breech position and first . Moderate bilateral ovarian cysts Musculoskeletal History: Reports: Arthritis, Neck Pain, Chronic, Osteoarthritis , Other (See Below). Denies: Amputation, Back Pain, Chronic, Fracture, Gout, Osteoporosis, RA, SLE Other Musculoskeletal History: Right ankle fracture 1993 Neurological History: Reports: None. Denies: Cerebral Aneurysms, CVA, Headaches , Chronic, Head Trauma, Migraines, MS, Neuropathy, Peripheral, Parkinson's, Seizure, TIA Psychiatric History: Reports: Anxiety, Depression. Denies: Abuse, Victim of, ADD, ADHD, Addiction, Alzheimers Disease, Dementia, Psych Hospitalization(s), Psychosis, PTSD, Suicide Attempt, Suicidal Ideation Endocrine/Metabolic History: Reports: Obesity/BMI 30+, Other (See Below). Denies: Diabetes, Gestational, Diabetes, Type I, Diabetes, Type II, Diabetes Mellitus, Type 3c, Hypothyroidism, IDDM, Osteopenia, Osteoporosis Other Endocrine/Metabolic History: Hypoalbuminemia Hematologic History: Reports: Anemia, Iron Deficiency. Denies: Blood Transfusion(s) Immunologic History: Reports: Immunosuppression, Other (See Below). Denies: AIDS, HIV, SLE Other Immunologic History: Immunosuppression secondary to current medical therapy for her ulcerative colitis Oncologic (Cancer) History: Reports: None. Denies: Basal Cell Carcinoma, Breast , Hodgkin's Lymphoma, Leukemia, Malignant Melanoma, Non-Hodgkin's Lymphoma, Ovarian, Squamous Cell Carcinoma, Uterine Dermatologic History: Reports: None. Denies: Eczema, Psoriasis - Infectious Disease History Infectious Disease History: Reports: Measles. Denies: C-Difficile, Chicken Pox , Meningitis, Mononucleosis, MRSA, Mumps, Pertussis (Whooping Cough), Rubella, Scarlet Fever, Shingles, TB, VRE - Past Surgical History Head Surgeries/Procedures: Reports: None HEENT Surgical History: Reports: Adenoidectomy, Oral Surgery, Tonsillectomy, Other (See Below). Denies: Cataract Surgery, Eye Surgery, Laser Surgery, LASIK , Myringotomy w Tube(s), Naso-Sinus Surgery Other HEENT Surgeries/Procedures: Tonsillectomy at about age 10. [place] teeth extraction 4 at about age 12 Cardiovascular Surgical History: Reports: None. Denies: Varicose Respiratory Surgical History: Reports: None. Denies: Thoracentesis GI Surgical History: Reports: Colonoscopy, Polypectomy, Other (See Below). Denies: Appendectomy, Cholecystectomy, EGD, Hernia, Abdominal, Hernia, Inguinal , Hernia Repair/Other Other GI Surgeries/Procedures: Last colonoscopy in 2017 with polypectomy at that time with previous colonoscopy in 2013 with no polyps during that evaluation. Female Surgical History: Reports: Breast Implant, Section, Hysterectomy, Tubal Ligation, Other (See Below) Other Female Surgeries/Procedures: section in 1997. Hysterectomy secondary to endometriosis and dysfunctional uterine bleeding in about 2008. Bilateral tubal ligation in about 2007. Bilateral breast implants in 2007 Endocrine Surgical History: Reports: None. Denies: Thyroid Biopsy Neurological Surgical History: Reports: None. Denies: C-Spine, Discectomy, Laminectomy, Lumbar Spine, Sacral Spine, Spinal Fusion, Thoracic Spine, Vertebroplasty Musculoskeletal Surgical History: Reports: None. Denies: Arthroscopic Procedure , Carpal Tunnel, Ganglion Cyst, Joint Replacement, ORIF, Shoulder Surgery Oncologic Surgical History: Reports: None Dermatological Surgical History: Reports: None - Past Imaging History Past Imaging History: Reports: Mammogram (Last mammogram on 09/25/15), MRI (MRI of the lumbar spine on 08/09/17. MRI of the left leg on 09/13/17), Ultrasound ( Pelvic ultrasound on 10/22/15 and 09/25/15). Denies: Angiography, Cardiac Echo , Stress Testing Social & Family History - Family History HEENT: Reports: Cataract, Macular Degeneration, Other (See Below). Denies: Glaucoma, Retinal Detachment Other HEENT Family History: Father and paternal uncle with cataracts and macular degeneration. Cardiac: Reports: Arrhythmia, CAD, Hypertension, VA, Pacemaker, Stent, Other ( See Below). Denies: Afib, AICD, Aneurysm, Blood Clots/VTE/DVT, Heart Failure, Heart Murmur, PVD/COD, Syncope Other Cardiac Family History: Father with fatal VA at age 77 with previous VA at age 74 with history of PTCA/stent at that time. Mother with hypertension. Maternal grandmother with pacemaker. Respiratory: Reports: COPD, Interstitial Lung Disease, Sleep Apnea, Other (See Below). Denies: Asthma, PE, Pneumothorax Other Respiratory Family Hisory: Father with history of asbestos exposure, COPD , and sleep apnea GI: Reports: Inflammatory Bowel Disease, Other (See Below). Denies: Bowel Obstruction, Celiac Disease, Cholelithiasis, Colon Polyps, Diverticulitis, Diverticulosis, GERD, GI bleed, Irritable Bowel Syndrome, PUD Other GI Family History: Brother and paternal uncle with ulcerative colitis : Reports: None. Denies: Dialysis, Renal Calculus, Renal Disease/ Insufficiency OBGYN: Reports: None. Denies: Dysfunctional uterine bleeding, Endometriosis, Recurrent Spontaneous Musculoskeletal: Reports: None. Denies: Gout, RA, SLE Neurological: Reports: None. Denies: Alzheimers Disease, Cerebral Aneurysms, CVA, Dementia, Migraines, MS, Neuropathy, Peripheral, Parkinson's, Seizure, TIA Psychiatric: Reports: Anxiety, Depression, Other (See Below). Denies: Abuse, Victim of, ADD, ADHD, Psych Hospitalization(s), PTSD, Suicide Attempt Other Psychiatric Family History: Anxiety depression disorder in sister, brother , and mother. Endocrine/Metabolic: Reports: Diabetes, type II, Hypothyroidism, IDDM, Other ( See Below). Denies: Diabetes, Gestational, Diabetes, Type I, Diabetes Mellitus , Type 3c Other Endocrine/Metabolic Family History: Paternal grandmother with IDDM. Sister with hypothyroidism. Hematologic: Reports: None. Denies: Anemia, SLE, Transfusion Reaction Immunologic: Reports: None. Denies: AIDS, HIV, SLE Dermatologic: Reports: None. Denies: Eczema, Psoriasis Oncologic: Reports: Colon, Leukemia, Lung, Other (See Below). Denies: Breast, Cervix, Hodgkin's Lymphoma, Lymphoma, Metastatic, Non-Hodgkin's Lymphoma, Ovarian, Skin, Uterine Other Oncologic Family History: Fatal colon cancer in maternal grandfather in his 80s. Paternal aunt with leukemia. Paternal grandfather with fatal lung cancer in his 70s possibly secondary to tobacco use. - Tobacco Use Smoking Status *Q: Current Every Day Smoker Tobacco Use Within Last Twelve Months: Cigarettes Years of Tobacco use: 27 Packs/Tins Daily: 0.5 Used Tobacco, but Quit: No Smoking Cessation Information Provided To Patient: Yes Second Hand Smoke Exposure: Yes Source of Second Hand Smoke Exposure: smokes Second Hand Smoke Education Provided: Yes - Caffeine Use Caffeine Use: Reports: Coffee (2 cups per day), Soda (1 soda per day), Tea (1 glass per day). Denies: Energy Drinks - Alcohol Use Alcohol Use History: No Days Per Week of Alcohol Use: 0 Number of Drinks Per Day: 0 Number of Drinks Per Day Comment: DWI in 2004 with no previous problems with alcohol abuse or treatment. Total Drinks Per Week: 0 Alcohol Use in Last Twelve Months: No - Recreational Drug Use Recreational Drug Use: No Drug Use in Last 12 Months: No Recreational Drug Type: Denies: Amphetamines (Speed), Cocaine, Heroin, Inhalants (Glues, Solvents, Aerosols), LSD (Acid), Marijuana/Hashish, Methamphetamine, Morphine, Oxycodone - Sexual History Sexual History: Reports: Single Partner - Living Situation & Occupation Living situation: Reports: (October 21, 2014 with no children from this relationship.), ( from first and 2001 with 2 children from that relationship) Occupation: Employed (S[employer] at [employer] in [place]) ED ROS GENERAL - Review of Systems Review Of Systems: ROS reveals no pertinent complaints other than HPI. ED EXAM, GENERAL - Physical Exam Exam: See Below Exam Limited By: No Limitations General Appearance: Alert, WD/WN, No Apparent Distress Eye Exam: Bilateral Eye: EOMI, Normal Inspection (No nystagmus), PERRL Ears: Normal External Exam, Normal Canal, Hearing Grossly Normal, Normal TMs Nose: Normal Inspection, Normal Mucosa, No Blood Throat/Mouth: Normal Inspection, Normal Lips, Normal Teeth, Normal Gums, Normal Oropharynx, Normal Voice, No Airway Compromise. No: Dysphagia, Inflammation, Perioral Cyanosis Head: Atraumatic, Normocephalic. No: Facial Swelling, Facial Tenderness, Sinus Tenderness Neck: Normal Inspection, Supple, Non-Tender, Full Range of Motion. No: Carotid Bruit, Lymphadenopathy (L), Lymphadenopathy (R), Thyromegaly Respiratory/Chest: No Respiratory Distress, Lungs Clear, Normal Breath Sounds, No Accessory Muscle Use, Chest Non-Tender. No: Pleural Rub, Retractions Cardiovascular: Normal Peripheral Pulses, No Edema, No Gallop, No JVD, No Murmur , No Rub, Tachycardia (Regular rhythm). No: Gallop/S3, Gallop/S4, Friction Rub Peripheral Pulses: 2+: Radial (L), Radial (R), Dorsalis Pedis (L), Dorsalis Pedis (R) GI/Abdominal: Normal Bowel Sounds, Soft, Non-Tender, No Organomegaly, No Distention, No Abnormal Bruit, No Mass, Other (obese). No: Guarding (Female) Exam: Deferred Rectal (Female) Exam: Deferred Back Exam: Normal Inspection, Full Range of Motion. No: CVA Tenderness (L), CVA Tenderness (R), Muscle Spasm Extremities: Normal Inspection, Normal Range of Motion, Non-Tender, No Pedal Edema, Normal Capillary Refill. No: Keyona's Sign Neurological: Alert, Oriented, CN II-XII Intact, Normal Cognition, Normal Gait, Normal Reflexes (Negative Babinski's), No Motor/Sensory Deficits Psychiatric: Normal Affect, Normal Mood Skin Exam: Warm, Dry, Intact, Normal Color, No Rash. No: Diaphoretic, Wound/ Incision Lymphatic: No Adenopathy EKG INTERPRETATION EKG Date: 04/19/18 Time: 10:53 Rhythm: NSR Rate (Beats/Min): 64 [place]: Normal (Neutral cardiac axis) P-Wave: Present (Mild diffuse biphasic P waves with new pulmonary hypertension by EKG) QRS: Normal (0.07 seconds with T-wave inversion in lead V1) ST-T: Normal QT: Normal SD/PQ Interval: 0.14 seconds representing a mildly progressive short SD interval with no delta waves present. Comparison: Change From Previous EKG (As above since 03/08/18) EKG Interpretation Comments: 1. No acute ischemic changes 2. Short SD interval 3. Pulmonary hypertension by EKG Course - Vital Signs Last Recorded V/S: Last Vital Signs Temp 37.1 C 04/19/18 10:08 Pulse 56 L 04/19/18 13:35 Resp 18 04/19/18 13:35 BP 91/67 04/19/18 13:35 Pulse Ox 100 04/19/18 13:35 Vital Signs - 24 hr 04/19/18 04/19/18 04/19/18 10:08 10:37 10:54 Temperature [ 37.1 C Temporal] Pulse, 150 H Peripheral Pulse, 169 H 68 Peripheral [ Left Pulse Oximetry] Respiratory 20 20 Rate Blood Pressure 122/92 H Blood Pressure 122/92 H 97/68 [Right Upper Arm] O2 Sat by Pulse 100 100 Oximetry 04/19/18 04/19/18 04/19/18 10:59 11:02 11:17 Temperature [ Temporal] Pulse, 70 Peripheral Pulse, 62 65 Peripheral [ Left Pulse Oximetry] Respiratory 18 16 Rate Blood Pressure 97/68 Blood Pressure 99/75 90/57 L [Right Upper Arm] O2 Sat by Pulse 100 100 Oximetry 04/19/18 04/19/18 04/19/18 11:47 12:02 12:17 Temperature [ Temporal] Pulse, Peripheral Pulse, 64 60 58 L Peripheral [ Left Pulse Oximetry] Respiratory 16 18 18 Rate Blood Pressure Blood Pressure 96/70 102/74 99/72 [Right Upper Arm] O2 Sat by Pulse 100 100 100 Oximetry 04/19/18 04/19/18 04/19/18 12:32 12:48 13:03 Temperature [ Temporal] Pulse, Peripheral Pulse, 63 59 L 57 L Peripheral [ Left Pulse Oximetry] Respiratory 18 18 18 Rate Blood Pressure Blood Pressure 90/66 93/69 98/69 [Right Upper Arm] O2 Sat by Pulse 100 100 100 Oximetry 04/19/18 04/19/18 13:19 13:35 Temperature [ Temporal] Pulse, Peripheral Pulse, 57 L 56 L Peripheral [ Left Pulse Oximetry] Respiratory 17 18 Rate Blood Pressure Blood Pressure 98/76 91/67 [Right Upper Arm] O2 Sat by Pulse 100 100 Oximetry - Orders/Labs/Meds Orders: Active Orders 24 hr Category Date Time Status Cardiac Monitoring [RC] . DIRECTED Care 04/19/18 10:29 Active EKG Documentation Completion [RC] ASDIRECTED Care 04/19/18 10:29 Active Oxygen Therapy, ED [RC] PRN Care 04/19/18 10:29 Active Peripheral IV Care [RC] . DIRECTED Care 04/19/18 10:29 Active Pulse Oximetry [RC] CONTINUOUS Care 04/19/18 10:29 Active Up With Assistance [RC] PFP Care 04/19/18 10:29 Active Vital Signs [RC] PFP Care 04/19/18 10:29 Active Nothing per Oral Now Diet [DIET] Diet 04/19/18 Breakfast Active Chest 1V Frontal [CR] Stat Exams 04/19/18 10:29 Taken Chest PE [Ang Chest] [CT] Stat Exams 04/19/18 11:16 Taken Sodium Chloride 0.9% [Saline Flush] Med 04/19/18 10:29 Active 10 ml FLUSH ASDIRECTED PRN Obtain Past Medical Record [OM.PC] Urgent Oth 04/19/18 10:29 Active Peripheral IV Insertion Adult [OM.PC] Stat Oth 04/19/18 10:29 Ordered Resuscitation Status Stat Resus Stat 04/19/18 10:29 Ordered Medication Orders Sodium Chloride (Saline Flush) 10 ml FLUSH ASDIRECTED PRN PRN Reason: Keep Vein Open Last Admin: 04/19/18 10:50 Dose: 10 ml Admin: 04/19/18 10:45 Dose: 10 ml Labs: Laboratory Tests 04/19/18 04/19/18 04/19/18 Range/Units 10:30 10:30 10:30 WBC 10.0 (4.0-10.2) K/uL RBC 4.72 (3.77-5.09) M/uL Hgb 14.1 (11.7-15.5) g/dL Hct 42.0 (34.0-46.0) % MCV 89.0 (84.0-98.0) fL MCH 29.9 (28.2-33.3) pg MCHC 33.6 (31.7-36.0) g/dL RDW 13.2 (11.2-14.1) % Plt Count 253 (150-350) K/uL Neut % (Auto) 77.8 (45.0-80.0) % Lymph % (Auto) 16.8 (10.0-50.0) % [place] % (Auto) 4.6 (2.0-14.0) % Eos % (Auto) 0.5 (0.0-5.0) % Baso % (Auto) 0.3 (0.0-2.0) % Neut # (Auto) 7.77 H (1.40-7.00) K/uL Lymph # (Auto) 1.68 (0.50-3.50) K/uL [place] # (Auto) 0.46 (0.00-1.00) K/uL Eos # (Auto) 0.05 (0.00-0.50) K/uL Baso # (Auto) 0.03 (0.00-0.20) K/uL PT 10.2 (9.8-11.7) SEC INR 1.0 APTT 25.4 (22.1-29.8) SEC D-Dimer, Quantitative 829 H (0-400) ng/mL Sodium (136-145) mmol/L Potassium (3.5-5.1) mmol/L Chloride (98-107) mmol/L Carbon Dioxide (21.0-32.0) mmol/L BUN (7-18) mg/dL Creatinine (0.51-1.17) mg/dL Est Cr Clr Drug Dosing mL/min Estimated GFR (MDRD) mL/min Glucose (74-106) mg/dL Lactic Acid (0.4-2.0) mmol/L Uric Acid (2.6-7.2) mg/dL Calcium (8.5-10.1) mg/dL Magnesium (1.8-2.4) mg/dL Total Bilirubin (0.2-1.0) mg/dL AST (15-37) U/L ALT (12-78) U/L Alkaline Phosphatase (46-116) IU/L Creatine Kinase (26-308) U/L Creatine Kinase Index (0.0-2.5) % CK-MB (CK-2) (0.00-3.60) ng/mL Troponin I (0.000-0.056) ng/mL NT-Pro-B Natriuret Pep (0-125) pg/mL Total Protein (6.4-8.2) g/dL Albumin (3.4-5.0) g/dL TSH, Ultra Sensitive (0.358-3.740) mIU/mL 04/19/18 04/19/18 Range/Units 10:30 10:30 WBC (4.0-10.2) K/uL RBC (3.77-5.09) M/uL Hgb (11.7-15.5) g/dL Hct (34.0-46.0) % MCV (84.0-98.0) fL MCH (28.2-33.3) pg MCHC (31.7-36.0) g/dL RDW (11.2-14.1) % Plt Count (150-350) K/uL Neut % (Auto) (45.0-80.0) % Lymph % (Auto) (10.0-50.0) % [place] % (Auto) (2.0-14.0) % Eos % (Auto) (0.0-5.0) % Baso % (Auto) (0.0-2.0) % Neut # (Auto) (1.40-7.00) K/uL Lymph # (Auto) (0.50-3.50) K/uL [place] # (Auto) (0.00-1.00) K/uL Eos # (Auto) (0.00-0.50) K/uL Baso # (Auto) (0.00-0.20) K/uL PT (9.8-11.7) SEC INR APTT (22.1-29.8) SEC D-Dimer, Quantitative (0-400) ng/mL Sodium 139 (136-145) mmol/L Potassium 4.0 (3.5-5.1) mmol/L Chloride 104 (98-107) mmol/L Carbon Dioxide 23.4 (21.0-32.0) mmol/L BUN 18 (7-18) mg/dL Creatinine 0.72 (0.51-1.17) mg/dL Est Cr Clr Drug Dosing 87.00 mL/min Estimated GFR (MDRD) > 60 mL/min Glucose 101 (74-106) mg/dL Lactic Acid 0.9 (0.4-2.0) mmol/L Uric Acid 3.0 (2.6-7.2) mg/dL Calcium 8.5 (8.5-10.1) mg/dL Magnesium 2.0 (1.8-2.4) mg/dL Total Bilirubin 0.4 (0.2-1.0) mg/dL AST 13 L (15-37) U/L ALT 22 (12-78) U/L Alkaline Phosphatase 78 (46-116) IU/L Creatine Kinase 101 (26-308) U/L Creatine Kinase Index 1.0 (0.0-2.5) % CK-MB (CK-2) 1.00 (0.00-3.60) ng/mL Troponin I 0.000 (0.000-0.056) ng/mL NT-Pro-B Natriuret Pep 68 (0-125) pg/mL Total Protein 7.6 (6.4-8.2) g/dL Albumin 3.8 (3.4-5.0) g/dL TSH, Ultra Sensitive 1.347 (0.358-3.740) mIU/mL Meds: Medications Generic Name Dose Route Start Last Admin Trade Name Freq PRN Reason Stop Dose Admin Sodium Chloride 10 ml 04/19/18 10:29 04/19/18 10:50 Saline Flush FLUSH 10 ml ASDIRECTED PRN Administration Keep Vein Open Discontinued Medications Generic Name Dose Route Start Last Admin Trade Name Flaquitoq PRN Reason Stop Dose Admin Adenosine 6 mg 04/19/18 10:46 04/19/18 10:49 Adenocard IVPUSH 04/19/18 10:47 6 mg NOW ONE Administration Famotidine 40 mg 04/19/18 10:29 04/19/18 10:40 Pepcid IVPUSH 04/19/18 10:30 40 mg ONETIME ONE Administration Iopamidol 100 ml 04/19/18 11:20 04/19/18 11:57 [id number] (76%) IVPUSH 04/19/18 11:21 100 ml ONETIME ONE Administration Metoprolol Tartrate 5 mg 04/19/18 10:29 04/19/18 10:37 Lopressor IVPUSH 04/19/18 10:30 5 mg ONETIME ONE Administration Metoprolol Tartrate 25 mg 04/19/18 10:53 04/19/18 10:59 Lopressor PO 04/19/18 10:54 25 mg ONETIME ONE Administration - Radiology Interpretation Free Text/Narrative:: 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 Additional mild to moderate borderline occasional bradycardia at end of emergency room evaluation with lowest pulse of 49 at rest , which was tolerated by the patient. Heart rate in the 60s while sitting and standing at discharge. No other ectopy or arrhythmia.. Chest x-ray, portable, shows evidence of mild pulmonary obstructive disease with probable mild pulmonary hypertension and/or mild centralized CHF. Mild prominence of the proximal aortic arch. No evidence of pneumothorax, significant pulmonary infiltrates, etc. Note multiple metallic clips present from clothing. Telephone consultation at 13:26 hours with the radiology department at [facility]. Preliminary verbal report of CTA of the chest was negative for PE. CT Results Date: 04/19/18 CT Results Time: 13:26 Departure - Departure Time of Disposition: 14:05 Disposition: Home, Self-Care 01 Condition: Good Clinical Impression: Hypoalbuminemia, PSVT (paroxysmal supraventricular tachycardia), Ulcerative colitis, COPD (chronic obstructive pulmonary disease), Tobacco abuse counseling , Mixed anxiety depressive disorder, Osteoarthritis, D-dimer, elevated Prescriptions: Diltiazem HCl [Diltiazem 24Hr Cd] 120 mg PO BEDTIME #30 cap.er.24h Instructions: D-Dimer Test Forms: ED Department Discharge, ED Return to Work/School Form Additional Instructions: 1. Followup with your regular provider in 7-10 days as directed. Bring these discharge instructions with you to that visit. 2. Discuss possible Cardiolite stress test in this facility with your regular provider at that time. 3. Medication compliance as discussed. 4. Discuss possible lung function tests/ PFTs once your heart rhythm has stabilized 5. Work excuse- See Form 6. Stop all tobacco use VANESSA as directed/per provided information and consider contacting Quit LIne, etc.. 7. Immediately after this visit verify that your cellular telephone's voicemail has been activated and is empty. Also verify that your home telephone 's answering machine is operating properly and has space to receive messages. Note that it is sometimes necessary for us to be able to contact you at a later date to discuss your medical care. 8. Consider updating her mammogram VANESSA. 9. Continue high protein Glucerna supplements twice a day as snacks or as a meal substitute as previously directed 10. Follow-up in this facility at noon tomorrow for venous Doppler studies of your legs bilaterally. Do not leave this facility until you get a verbal report from me. 11. Injury/fall precautions for the next 24 hours secondary to your low heart rate at this time. 12. Work excuse- See Form 13. Do Not restart your Cardizem CD until tomorrow evening at bedtime secondary to medications given to you in the emergency room today. - Problem List & Annotations (1) PSVT (paroxysmal supraventricular tachycardia) SNOMED Code(s): 32493730 Code(s): I47.1 - SUPRAVENTRICULAR TACHYCARDIA Status: Acute Priority: High Onset Date: 03/07/18 Annotation/Comment:: Excellent response to medical therapy as above. Blood pressure mildly decreased and some occasional brief bradycardia as above secondary to treatment, however nonsymptomatic in nature. Various therapeutic options were discussed with the patient, including hospitalization for change in medical therapy to beta liat versus restarting her previous diltiazem, which was effective prior to discontinuation of this medication by the patient recently as above. The patient has elected to resume her diltiazem with caution. No true allergic reaction to this medication based on the above history. Medication compliance encouraged with the patient to follow-up with her regular provider VANESSA, if this rash recurs. Note that the patient was weeding shortly prior to obtaining her rash. Continue to observe closely through her regular provider. The patient was once again counseled extensively concerning Valsalva maneuver, etc. for breakthrough tachycardia. Note that Valsalva maneuver by the patient today prior to arrival was ineffective, however. Patient still may benefit from a Cardiolite stress secondary to her cardiac risk factors, including recent of her father as above. She will discuss this further with her regular provider as per discharge instructions. Chest pain protocol was not initiated secondary to absence of anginal complaints. Note that glycosylated hemoglobin and lipid panel were normal during hospitalization on 03/08/18. TSH was once again normal today. (2) D-dimer, elevated SNOMED Code(s): 724032891 Code(s): R79.89 - OTHER SPECIFIED ABNORMAL FINDINGS OF BLOOD CHEMISTRY Status: Acute Priority: High Onset Date: 04/19/18 Annotation/Comment:: Negative CT scan of the chest results as above. No direct clinical evidence of DVT. Information provided at discharge. Various therapeutic options were discussed with the patient, who wishes to delay recommended venous Doppler studies of the lower extremities until tomorrow as per discharge instructions. Work excuse provided. (3) Hypoalbuminemia SNOMED Code(s): 901810491 Code(s): E88.09 - H DISORDERS OF PLASMA-PROTEIN METABOLISM, NEC Status: Acute Priority: Medium Onset Date: 03/08/18 Annotation/Comment:: Continue high-protein Glucerna supplements 2 times a day as snacks or as 1 meal replacement per day with normal protein and albumin levels today. (4) Mixed anxiety depressive disorder SNOMED Code(s): 007338269 Code(s): F41.8 - OTHER SPECIFIED ANXIETY DISORDERS Status: Acute Priority : Medium Annotation/Comment:: Stable by patient history at this time, despite no current medical therapy and recent of her father. Emotional support provided. Continue to observe closely by her regular provider (5) Ulcerative colitis SNOMED Code(s): 28402695 Code(s): K51.90 - ULCERATIVE COLITIS, UNSPECIFIED, WITHOUT COMPLICATIONS Status: Acute Priority: Medium Onset Date: 03/22/15 Annotation/Comment:: The patient has restarted her sulfasalazine since last hospitalization with the patient taking this only on a at bedtime basis rather than 3 times a day as previously recommended. Note previous medication noncompliance for the last several months with discontinuation of this medication on her own in the past. Medication compliance was once again strongly encouraged with medication to be increased back to a 3 times a day basis as previously recommended. No previous history of GI bleed or significant exacerbation off of her medication with reinitiation of her sulfasalazine at a decreased standard prophylactic regimen after last hospitalization as above. Qualifiers: Ulcerative colitis location: other ulcerative colitis Digestive disease complication type: without complication Qualified Code(s): K51.80 - Other ulcerative colitis without complications (6) COPD (chronic obstructive pulmonary disease) SNOMED Code(s): 62515178 Code(s): J44.9 - CHRONIC OBSTRUCTIVE PULMONARY DISEASE, UNSPECIFIED Status : Chronic Priority: Medium Annotation/Comment:: COPD by chest x-ray with continued tobacco abuse. Consider PFTs in the future, although no apparent current problems with recurrent bronchitis, etc.. No recent history of fever, bronchitic type symptoms, etc. Qualifiers: COPD type: emphysema Emphysema type: panlobular Qualified Code(s): J43.1 - Panlobular emphysema (7) Osteoarthritis SNOMED Code(s): 510719691 Code(s): M19.90 - UNSPECIFIED OSTEOARTHRITIS, UNSPECIFIED SITE Status: Chronic Priority: Medium Annotation/Comment:: Stable by patient history Qualifiers: Osteoarthritis location: multiple joints Osteoarthritis type: primary Qualified Code(s): M15.0 - Primary generalized (osteo)arthritis (8) Tobacco abuse counseling SNOMED Code(s): 374995462, 408029051, 208162014 Code(s): Z71.6 - TOBACCO ABUSE COUNSELING Status: Chronic Priority: Medium Annotation/Comment:: Stop all tobacco use VANESSA as directed/per provided information and consider contacting [facility]uit [facility], etc.. Tobacco cessation information once again provided. - Problem List Review Problem List Initiated/Reviewed/Updated: Yes - My Orders Last 24 Hours: My Active Orders 04/19/18 10:29 Cardiac Monitoring [RC] . DIRECTED EKG Documentation Completion [RC] ASDIRECTED Oxygen Therapy, ED [RC] PRN Peripheral IV Care [RC] . DIRECTED Pulse Oximetry [RC] CONTINUOUS Up With Assistance [RC] PFP Vital Signs [RC] PFP Chest 1V Frontal [CR] Stat Sodium Chloride 0.9% [Saline Flush] 10 ml FLUSH ASDIRECTED PRN Obtain Past Medical Record [OM.PC] Urgent Peripheral IV Insertion Adult [OM.PC] Stat Resuscitation Status Stat 04/19/18 11:16 Chest PE [Ang Chest] [CT] Stat 04/19/18 Breakfast Nothing per Oral Now Diet [DIET] - Assessment/Plan Last 24 Hours: My Active Orders 04/19/18 10:29 Cardiac Monitoring [RC] . DIRECTED EKG Documentation Completion [RC] ASDIRECTED Oxygen Therapy, ED [RC] PRN Peripheral IV Care [RC] . DIRECTED Pulse Oximetry [RC] CONTINUOUS Up With Assistance [RC] PFP Vital Signs [RC] PFP Chest 1V Frontal [CR] Stat Sodium Chloride 0.9% [Saline Flush] 10 ml FLUSH ASDIRECTED PRN Obtain Past Medical Record [OM.PC] Urgent Peripheral IV Insertion Adult [OM.PC] Stat Resuscitation Status Stat 04/19/18 11:16 Chest PE [Ang Chest] [CT] Stat 04/19/18 Breakfast Nothing per Oral Now Diet [DIET] Assessment:: As above Plan: As above. Extensive precautions were given to the patient, who is in agreement with the treatment plan. See Patient Instructions for further treatment and plan.
[2018-04-19] MEDS: Sodium Chloride 0.9% 10 ML Syringe FLUSH PRN ×2 (10:45→10:50)
[2018-04-19] MEDS ORDERED: Adenosine 6 MG/2 ML SDV IVPUSH ONE (10:46)
[2018-04-19] MEDS ORDERED: Metoprolol Tartrate 25 MG Tab PO ONE (10:53)
[2018-04-19 11:10] LABS: CHLORIDE,CL 104 mmol/L (98-107); SODIUM,NA 139 mmol/L (136-145)
[2018-04-19] MEDS ORDERED: Iopamidol 755 Mg/ML 100 ML Bottle IVPUSH ONE (11:20)
[2018-04-19 14:07] VITALS: BP 91/67
== END 2018-04-19 14:05 | disposition home or self-care (01) ==
LOC: LL.ED 10:07
DX: I47.1 Supraventricular tachycardia (principal); K51.90 Ulcerative colitis, unspecified, without complications; E88.09 Other disorders of plasma-protein metabolism, not elsewhere classified; F41.9 Anxiety disorder, unspecified; M15.0 Primary generalized (osteo)arthritis; R79.1 Abnormal coagulation profile; J44.9 Chronic obstructive pulmonary disease, unspecified; E66.9 Obesity, unspecified; F17.210 Nicotine dependence, cigarettes, uncomplicated; Z71.6 Tobacco abuse counseling
CPT/HCPCS: 36415; 71045; 71275; 80053; 82550; 82553; 83605; 83735; 83880; 84443; 84484; 84550; 85025; 85379; 85610; 85730; 93005; 96374; 96375; 99285; A9270-GY; J0153; J3490; J7050; Q9967; S0028

== ENCOUNTER 2020-02-20 10:38 | Emergency (ER) | payer BC ==
[2020-02-20] MEDS ORDERED: Diltiazem 25 MG/5 ML SDV IVPUSH ONE (10:46)
[2020-02-20] MEDS: Sodium Chloride 0.9% 10 ML Syringe FLUSH PRN ×2 (10:51→11:48)
[2020-02-20 11:10] LABS: CHLORIDE,CL 104 mmol/L (98-107); SODIUM,NA 140 mmol/L (136-145)
--- NOTE | 2020-02-20 11:50 | EDM.PDOC ---
ED HPI GENERAL MEDICAL PROBLEM - General Chief Complaint: General Stated Complaint: tachycardia Time Seen by Provider: 02/20/20 11:06 Source of Information: Reports: Patient History Limitations: Reports: No Limitations - History of Present Illness INITIAL COMMENTS - FREE TEXT/NARRATIVE: Patient has history of SVT. Is on Diltiazem for this/has been evaluated by Cardiology. Has intermittent episodes/no specific trigger identified. Usually can get them to resolve by "taking a deep breath". Has not had to present to the ER for several years for one. Today noticed rapid heart rate around 9:45. Unable to get it to jori with usual deep breaths/time. No other acute changes. Has ulcerative colitis that has been acting up, but has not had any other illnesses/med changes/supplement changes. Denies SOB/diaphoresis/chest pain/other acute changes. Chest Pain Score (Numeric/FACES): 0 - Related Data Allergies Allergy/AdvReac Type Severity Reaction Status Date / Time No Known Allergies Allergy Verified 02/20/20 10:53 Home Meds: Home Meds Mv,Calcium,Min/Iron/Folic/Vitk [Multi For Her Tablet] 1 tab PO DAILY 03/21/15 [ History] Acetaminophen [Tylenol] 650 mg PO Q4H PRN tablet 03/08/18 [Rx] dilTIAZem HCl [Diltiazem 24Hr Cd] 120 mg PO BEDTIME #30 cap.er.24h 04/19/18 [Rx] sulfaSALAzine 500 mg PO TID #0 04/19/18 [Rx] clonazePAM [Clonazepam] 1 tab PO BEDTIME 02/20/20 [History] Past Medical History HEENT History: Reports: Other (See Below) Other HEENT History: Occasional nonspecific "buzzing" in ears bilaterally with no hearing loss Cardiovascular History: Reports: Arrhythmia, Other (See Below) Other Cardiovascular History: PSVT diagnosed on 03/07/18. History of varicose veins. Respiratory History: Reports: COPD, Intubation, Previous, Other (See Below) Other Respiratory History: COPD by chest x-ray on 03/21/15 Gastrointestinal History: Reports: Colon Polyp, GI Bleed, Inflammatory Bowel Disease, Other (See Below) Other Gastrointestinal History: Ulcerative colitis initially diagnosed in about 1998 by colonoscopy with history of recurrent mild lower GI bleeds last episode on 11/20/12. Benign colonic polyp in 2017 Genitourinary History: Reports: Renal Calculus, Other (See Below) Other Genitourinary History: Left-sided urolithiasis on 01/24/15 with spontaneous passage OIM CONSULTANT History: Reports: Dysfunctional Uterine Bleeding, Endometriosis, Polycystic Ovaries, Other OIM CONSULTANT History: Surgical menopause secondary to endometriosis. No problems during with full term with second , however full term secondary to breech position and first . Moderate bilateral ovarian cysts Musculoskeletal History: Reports: Arthritis, Neck Pain, Chronic, Osteoarthritis , Other (See Below) Other Musculoskeletal History: Right ankle fracture 1993 Neurological History: Reports: None Psychiatric History: Reports: Anxiety, Depression Endocrine/Metabolic History: Reports: Obesity/BMI 30+, Other (See Below) Other Endocrine/Metabolic History: Hypoalbuminemia Hematologic History: Reports: Anemia, Iron Deficiency Immunologic History: Reports: Immunosuppression, Other (See Below) Other Immunologic History: Immunosuppression secondary to current medical therapy for her ulcerative colitis Oncologic (Cancer) History: Reports: None Dermatologic History: Reports: None - Infectious Disease History Infectious Disease History: Reports: Measles - Past Surgical History Head Surgeries/Procedures: Reports: None HEENT Surgical History: Reports: Adenoidectomy, Oral Surgery, Tonsillectomy, Other (See Below) Other HEENT Surgeries/Procedures: Tonsillectomy at about age 10. [place] teeth extraction 4 at about age 12 Cardiovascular Surgical History: Reports: None Respiratory Surgical History: Reports: None GI Surgical History: Reports: Colonoscopy, Polypectomy, Other (See Below) Other GI Surgeries/Procedures: Last colonoscopy in 2017 with polypectomy at that time with previous colonoscopy in 2012 with no polyps during that evaluation. Female Surgical History: Reports: Breast Implant, Section, Hysterectomy, Tubal Ligation, Other (See Below) Other Female Surgeries/Procedures: section in 1997. Hysterectomy secondary to endometriosis and dysfunctional uterine bleeding in about 2008. Bilateral tubal ligation in about 2007. Bilateral breast implants in 2007 Endocrine Surgical History: Reports: None Neurological Surgical History: Reports: None Musculoskeletal Surgical History: Reports: None Oncologic Surgical History: Reports: None Dermatological Surgical History: Reports: None - Past Imaging History Past Imaging History: Reports: Mammogram (Last mammogram on 09/25/15), MRI (MRI of the lumbar spine on 08/09/17. MRI of the left leg on 09/13/17), Ultrasound ( Pelvic ultrasound on 10/22/15 and 09/25/15). Denies: Angiography, Cardiac Echo , Stress Testing Social & Family History - Family History HEENT: Reports: Cataract, Macular Degeneration, Other (See Below) Other HEENT Family History: Father and paternal uncle with cataracts and macular degeneration. Cardiac: Reports: Arrhythmia, CAD, Hypertension, ME, Pacemaker, Stent, Other ( See Below) Other Cardiac Family History: Father with fatal ME at age 77 with previous ME at age 74 with history of PTCA/stent at that time. Mother with hypertension. Maternal grandmother with pacemaker. Respiratory: Reports: COPD, Interstitial Lung Disease, Sleep Apnea, Other (See Below) Other Respiratory Family Hisory: Father with history of asbestos exposure, COPD , and sleep apnea GI: Reports: Inflammatory Bowel Disease, Other (See Below) Other GI Family History: Brother and paternal uncle with ulcerative colitis : Reports: None OBGYN: Reports: None Musculoskeletal: Reports: None Neurological: Reports: None Psychiatric: Reports: Anxiety, Depression, Other (See Below) Other Psychiatric Family History: Anxiety depression disorder in sister, brother , and mother. Endocrine/Metabolic: Reports: Diabetes, type II, Hypothyroidism, IDDM, Other ( See Below) Other Endocrine/Metabolic Family History: Paternal grandmother with IDDM. Sister with hypothyroidism. Hematologic: Reports: None Immunologic: Reports: None Dermatologic: Reports: None Oncologic: Reports: Colon, Leukemia, Lung, Other (See Below) Other Oncologic Family History: Fatal colon cancer in maternal grandfather in his 80s. Paternal aunt with leukemia. Paternal grandfather with fatal lung cancer in his 70s possibly secondary to tobacco use. 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 Denies: Shortness of Breath, Pleuritic Chest Pain Cardiovascular: Reports: Palpitations. Denies: Chest Pain, Dyspnea on Exertion , Edema, Lightheadedness, Orthopnea, PND, Syncope GI/Abdominal: Reports: No Symptoms : Reports: Other (chronic lower abdominal discomfort from IBD/ulcerative colitis) Musculoskeletal: Reports: Other (no acute changes from baseline) Skin: Reports: No Symptoms Neurological: Reports: No Symptoms Psychiatric: Reports: No Symptoms Hematologic/Lymphatic: Reports: No Symptoms Immunologic: Reports: No Symptoms ED EXAM, GENERAL - Physical Exam Exam: See Below Exam Limited By: No Limitations General Appearance: Alert, WD/WN, No Apparent Distress Eye Exam: Bilateral Eye: EOMI, PERRL Ears: Normal External Exam, Hearing Grossly Normal Nose: Normal Inspection Throat/Mouth: Normal Lips, Normal Voice, No Airway Compromise Head: Atraumatic, Normocephalic Neck: Normal Inspection, Supple, Non-Tender, Full Range of Motion Respiratory/Chest: No Respiratory Distress, Lungs Clear, Normal Breath Sounds, No Accessory Muscle Use, Chest Non-Tender Cardiovascular: No Edema, No JVD, Tachycardia Peripheral Pulses: 2+: Radial (L), Radial (R), Dorsalis Pedis (R) GI/Abdominal: Normal Bowel Sounds, Soft, No Distention. No: Guarding, Rigid, Rebound (Female) Exam: Deferred Rectal (Female) Exam: Deferred Back Exam: No: CVA Tenderness (L), CVA Tenderness (R), Muscle Spasm Extremities: Normal Inspection, Normal Range of Motion, Non-Tender, No Pedal Edema, Normal Capillary Refill Neurological: Alert, Oriented, Normal Cognition, Normal Gait, No Motor/Sensory Deficits Psychiatric: Normal Affect, Normal Mood Skin Exam: Warm, Dry, Intact, Normal Color EKG INTERPRETATION EKG Date: 02/20/20 Time: 10:46 Rhythm: Other (Sinus tachycardia) Rate (Beats/Min): 137 [place]: Normal P-Wave: Present QRS: Normal ST-T: Other (no obvious acute ST depression/elevation suggestive of acute ME) QT: Normal Course - Vital Signs Last Recorded V/S: Last Vital Signs Temp 36.3 C 02/20/20 10:40 Pulse 144 H 02/20/20 10:40 Resp 20 02/20/20 10:40 BP 115/80 02/20/20 10:40 Pulse Ox 98 02/20/20 10:40 - Orders/Labs/Meds Orders: Active Orders 24 hr Category Date Time Status EKG Documentation Completion [RC] ASDIRECTED Care 02/20/20 10:48 Active Chest 1V Frontal [CR] Stat Exams 02/20/20 10:48 Taken Magnesium Sulfate/D5W [Magnesium Sulfate in D5W 100 Med 02/20/20 11:35 Ordered Premix] 1 gm Premix Bag 1 bag IV ONETIME Sodium Chloride 0.9% [Saline Flush] Med 02/20/20 10:46 Active 10 ml FLUSH ASDIRECTED PRN Saline Lock Insert [OM.PC] Routine Oth 02/20/20 10:46 Ordered Medication Orders Magnesium Sulfate/Dextrose 1 (gm/ Premix) 100 mls @ 100 mls/hr IV ONETIME ONE Stop: 02/20/20 12:34 Sodium Chloride (Saline Flush) 10 ml FLUSH ASDIRECTED PRN PRN Reason: Keep Vein Open Last Admin: 02/20/20 10:51 Dose: 10 ml Labs: Laboratory Tests 02/20/20 02/20/20 Range/Units 10:50 10:50 WBC 10.9 H (4.0-10.2) K/uL RBC 4.53 (3.77-5.09) M/uL Hgb 13.7 (11.7-15.5) g/dL Hct 41.2 (34.0-46.0) % MCV 90.9 (84.0-98.0) fL MCH 30.2 (28.2-33.3) pg MCHC 33.3 (31.7-36.0) g/dL RDW 13.5 (11.2-14.1) % Plt Count 227 (150-350) K/uL Neut % (Auto) 78.8 (45.0-80.0) % Lymph % (Auto) 15.9 (10.0-50.0) % [place] % (Auto) 4.8 (2.0-14.0) % Eos % (Auto) 0.3 (0.0-5.0) % Baso % (Auto) 0.2 (0.0-2.0) % Neut # (Auto) 8.63 H (1.40-7.00) K/uL Lymph # (Auto) 1.74 (0.50-3.50) K/uL [place] # (Auto) 0.52 (0.00-1.00) K/uL Eos # (Auto) 0.03 (0.00-0.50) K/uL Baso # (Auto) 0.02 (0.00-0.20) K/uL Sodium 140 (136-145) mmol/L Potassium 4.0 (3.5-5.1) mmol/L Chloride 104 (98-107) mmol/L Carbon Dioxide 26.8 (21.0-32.0) mmol/L BUN 16 (7-18) mg/dL Creatinine 0.78 (0.51-1.17) mg/dL Est Cr Clr Drug Dosing TNP Estimated GFR (MDRD) > 60 mL/min Glucose 93 (74-106) mg/dL Calcium 8.4 L (8.5-10.1) mg/dL Magnesium 1.8 (1.8-2.4) mg/dL Total Bilirubin 0.3 (0.2-1.0) mg/dL AST 18 (15-37) U/L ALT 22 (12-78) U/L Alkaline Phosphatase 62 (46-116) IU/L Troponin I 0.000 (0.000-0.056) ng/mL Total Protein 7.1 (6.4-8.2) g/dL Albumin 3.7 (3.4-5.0) g/dL Meds: Medications Generic Name Dose Route Start Last Admin Trade Name Freq PRN Reason Stop Dose Admin Magnesium Sulfate/Dextrose 1 100 mls @ 100 mls/hr 02/20/20 11:35 gm/ Premix IV 02/20/20 12:34 ONETIME ONE Sodium Chloride 10 ml 02/20/20 10:46 02/20/20 10:51 Saline Flush FLUSH 10 ml ASDIRECTED PRN Administration Keep Vein Open Discontinued Medications Generic Name Dose Route Start Last Admin Trade Name Freq PRN Reason Stop Dose Admin Diltiazem HCl 20 mg 02/20/20 10:46 02/20/20 10:51 Diltiazem IVPUSH 02/20/20 10:47 20 mg ONETIME ONE Administration - Re-Assessments/Exams Free Text/Narrative Re-Assessment/Exam: Tachycardia responded quickly to single IV dose Diltiazem. Rate in 70s. No acute ST changes noted. Patient felt back to normal. Baseline labs/chest xray ordered. Chest xray did not show any acute changes. Labs overall unremarkable. Calcium mildly low. Mag borderline low. Given association between low Mag/SVT, a single dose of IV Mag was ordered for the patient. She is to start daily Magnesium supplementation. Time spent discussing triggers for SVT. Recommend considering to D/C her morning coffee. Smoking cessation encouraged. Anti-inflammatory diet also recommended to help with IBD/UC complaints and total inflammation load. She is to follow up as needed if SVT recurs. To follow up with Cardiology to see if dosing change for Diltiazem is recommended. Departure - Departure Time of Disposition: 12:45 Disposition: Home, Self-Care 01 Condition: Good Clinical Impression: PSVT (paroxysmal supraventricular tachycardia) - Discharge Information *PRESCRIPTION DRUG MONITORING PROGRAM REVIEWED*: Not Applicable *COPY OF PRESCRIPTION DRUG MONITORING REPORT IN PATIENT FARHAT: Not Applicable Referrals: PCP,Unknown [Primary Care Provider] - Additional Instructions: Recommend that you start taking Magnesium daily. There are many forms available , most common is Mag Oxide. Look at starting dose of 400-500mg daily. Follow up with Cardiology and ask them if they recommend a dose change in the Diltiazem to see if you can further decrease the number of episodes of tachycardia you are experiencing. Also recommend trial of elimination diet/anti -inflammatory diet to see if it can help improve your inflammatory bowel symptoms. Follow up as needed if your tachycardia returns/you develop additional problems. Sepsis Event Note - Evaluation Sepsis Screening Result: No Definite Risk - Focused Exam Vital Signs: Vital Signs Temp Pulse Resp BP Pulse Ox 02/20/20 10:40 36.3 C 144 H 20 115/80 98 Date Exam was Performed: 02/20/20 Time Exam was Performed: 11:44 - My Orders Last 24 Hours: My Active Orders 02/20/20 10:46 Sodium Chloride 0.9% [Saline Flush] 10 ml FLUSH ASDIRECTED PRN Saline Lock Insert [OM.PC] Routine 02/20/20 10:48 EKG Documentation Completion [RC] ASDIRECTED Chest 1V Frontal [CR] Stat 02/20/20 11:35 Magnesium Sulfate/D5W [Magnesium Sulfate in D5W 100 Premix] 1 gm Premix Bag 1 bag IV ONETIME - Assessment/Plan Last 24 Hours: My Active Orders 02/20/20 10:46 Sodium Chloride 0.9% [Saline Flush] 10 ml FLUSH ASDIRECTED PRN Saline Lock Insert [OM.PC] Routine 02/20/20 10:48 EKG Documentation Completion [RC] ASDIRECTED Chest 1V Frontal [CR] Stat 02/20/20 11:35 Magnesium Sulfate/D5W [Magnesium Sulfate in D5W 100 Premix] 1 gm Premix Bag 1 bag IV ONETIME
[2020-02-21 08:35] VITALS: BP 95/73; PULSE 67
== END 2020-02-20 13:00 | disposition home or self-care (01) ==
LOC: LL.ED 10:38
DX: I47.1 Supraventricular tachycardia (principal); M19.90 Unspecified osteoarthritis, unspecified site; F41.9 Anxiety disorder, unspecified; F32.9 Major depressive disorder, single episode, unspecified; E66.9 Obesity, unspecified; F17.210 Nicotine dependence, cigarettes, uncomplicated; Z79.899 Other long term (current) drug therapy
CPT/HCPCS: 36415; 71045; 80053; 83735; 84484; 85025; 93005; 96365; 96375; 99285; J3475; J3490

== ENCOUNTER 2020-02-24 22:04 | Emergency (ER) | payer BC ==
[2020-02-24 22:13] VITALS: BP 92/75; PULSE 91
[2020-02-24] MEDS ORDERED: Ketorolac 60 MG/2 ML SDV IM ONE (22:42)
[2020-02-24] MEDS ORDERED: traMADol 50 MG Tab PO ONE (22:43)
--- NOTE | 2020-02-24 22:44 | EDM.PDOC ---
ED HPI GENERAL MEDICAL PROBLEM - General Chief Complaint: General Stated Complaint: foot injury Time Seen by Provider: 02/24/20 22:32 Source of Information: Reports: Patient History Limitations: Reports: No Limitations - History of Present Illness INITIAL COMMENTS - FREE TEXT/NARRATIVE: Patient comes in with complaint of left lateral foot pain that developed gradually over the last 6 hours after she fell off a cooler she was standing on. Initially no pain at all per patient. Able to walk/stand and continue what she was doing. Denies any specific initial injuries. Now discomfort in left lateral foot is bad enough that she cannot bear weight. No numbness/ tingling of foot. No swelling/skin injury. Left Foot Pain Score (Numeric/FACES): 8 - Related Data Allergies Allergy/AdvReac Type Severity Reaction Status Date / Time No Known Allergies Allergy Verified 02/24/20 22:19 Home Meds: Home Meds Mv,Calcium,Min/Iron/Folic/Vitk [Multi For Her Tablet] 1 tab PO DAILY 03/21/15 [ History] Acetaminophen [Tylenol] 650 mg PO Q4H PRN tablet 03/08/18 [Rx] dilTIAZem HCl [Diltiazem 24Hr Cd] 120 mg PO BEDTIME #30 cap.er.24h 04/19/18 [Rx] sulfaSALAzine 500 mg PO TID #0 04/19/18 [Rx] clonazePAM [Clonazepam] 1 tab PO BEDTIME 02/20/20 [History] Past Medical History HEENT History: Reports: Other (See Below) Other HEENT History: Occasional nonspecific "buzzing" in ears bilaterally with no hearing loss Cardiovascular History: Reports: Arrhythmia, Other (See Below) Other Cardiovascular History: PSVT diagnosed on 03/07/18. History of varicose veins. Respiratory History: Reports: COPD, Intubation, Previous, Other (See Below) Other Respiratory History: COPD by chest x-ray on 03/21/15 Gastrointestinal History: Reports: Colon Polyp, GI Bleed, Inflammatory Bowel Disease, Other (See Below) Other Gastrointestinal History: Ulcerative colitis initially diagnosed in about 1998 by colonoscopy with history of recurrent mild lower GI bleeds last episode on 11/20/12. 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 No problems during with full term with second , however full term secondary to breech position and first . Moderate bilateral ovarian cysts Musculoskeletal History: Reports: Arthritis, Neck Pain, Chronic, Osteoarthritis , Other (See Below) Other Musculoskeletal History: Right ankle fracture 1993 Neurological History: Reports: None Psychiatric History: Reports: Anxiety, Depression Endocrine/Metabolic History: Reports: Obesity/BMI 30+, Other (See Below) Other Endocrine/Metabolic History: Hypoalbuminemia Hematologic History: Reports: Anemia, Iron Deficiency Immunologic History: Reports: Immunosuppression, Other (See Below) Other Immunologic History: Immunosuppression secondary to current medical therapy for her ulcerative colitis Oncologic (Cancer) History: Reports: None Dermatologic History: Reports: None - Infectious Disease History Infectious Disease History: Reports: Measles - Past Surgical History Head Surgeries/Procedures: Reports: None HEENT Surgical History: Reports: Adenoidectomy, Oral Surgery, Tonsillectomy, Other (See Below) Other HEENT Surgeries/Procedures: Tonsillectomy at about age 10. [place] teeth extraction 4 at about age 12 Cardiovascular Surgical History: Reports: None Respiratory Surgical History: Reports: None GI Surgical History: Reports: Colonoscopy, Polypectomy, Other (See Below) Other GI Surgeries/Procedures: Last colonoscopy in 2016 with polypectomy at that time with previous colonoscopy in 2012 with no polyps during that evaluation. Female Surgical History: Reports: Breast Implant, Section, Hysterectomy, Tubal Ligation, Other (See Below) Other Female Surgeries/Procedures: section in 1997. Hysterectomy secondary to endometriosis and dysfunctional uterine bleeding in about 2008. Bilateral tubal ligation in about 2007. Bilateral breast implants in 2007 Endocrine Surgical History: Reports: None Neurological Surgical History: Reports: None Musculoskeletal Surgical History: Reports: None Oncologic Surgical History: Reports: None Dermatological Surgical History: Reports: None - Past Imaging History Past Imaging History: Reports: Mammogram (Last mammogram on 09/25/15), MRI (MRI of the lumbar spine on 08/09/17. MRI of the left leg on 09/13/17), Ultrasound ( Pelvic ultrasound on 10/22/15 and 09/25/15). Denies: Angiography, Cardiac Echo , Stress Testing Social & Family History - Family History HEENT: Reports: Cataract, Macular Degeneration, Other (See Below) Other HEENT Family History: Father and paternal uncle with cataracts and macular degeneration. Cardiac: Reports: Arrhythmia, CAD, Hypertension, ID, Pacemaker, Stent, Other ( See Below) Other Cardiac Family History: Father with fatal ID at age 77 with previous ID at age 74 with history of PTCA/stent at that time. Mother with hypertension. Maternal grandmother with pacemaker. Respiratory: Reports: COPD, Interstitial Lung Disease, Sleep Apnea, Other (See Below) Other Respiratory Family Hisory: Father with history of asbestos exposure, COPD , and sleep apnea GI: Reports: Inflammatory Bowel Disease, Other (See Below) Other GI Family History: Brother and paternal uncle with ulcerative colitis : Reports: None OBGYN: Reports: None Musculoskeletal: Reports: None Neurological: Reports: None Psychiatric: Reports: Anxiety, Depression, Other (See Below) Other Psychiatric Family History: Anxiety depression disorder in sister, brother , and mother. Endocrine/Metabolic: Reports: Diabetes, type II, Hypothyroidism, IDDM, Other ( See Below) Other Endocrine/Metabolic Family History: Paternal grandmother with IDDM. Sister with hypothyroidism. Hematologic: Reports: None Immunologic: Reports: None Dermatologic: Reports: None Oncologic: Reports: Colon, Leukemia, Lung, Other (See Below) Other Oncologic Family History: Fatal colon cancer in maternal grandfather in his 80s. Paternal aunt with leukemia. Paternal grandfather with fatal lung cancer in his 70s possibly secondary to tobacco use. 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 ED EXAM, GENERAL - Physical Exam Exam: See Below Exam Limited By: No Limitations General Appearance: Alert, WD/WN, No Apparent Distress Ears: Hearing Grossly Normal Throat/Mouth: Normal Voice, No Airway Compromise Head: Atraumatic, Normocephalic Neck: Supple Respiratory/Chest: No Respiratory Distress Extremities: Normal Capillary Refill, Other (Exam of affected left foot shows no obvious swelling/bruising/redness/deformity. Can move ankle but does have some pain limitation. Skin intact. Tenderness noted with palpation at border of lateral malleolus and along 5th metatarsal. Can wiggle toes. No crepitus. ) . No: Pedal Edema, Joint Swelling Neurological: Alert, Oriented, Normal Cognition Psychiatric: Normal Affect, Normal Mood Skin Exam: Warm, Dry, Intact, Normal Color Course - Vital Signs Last Recorded V/S: Last Vital Signs Temp 37.2 C 02/24/20 22:05 Pulse 91 02/24/20 22:05 Resp 16 02/24/20 22:05 BP 92/75 02/24/20 22:05 Pulse Ox 96 02/24/20 22:05 - Orders/Labs/Meds Orders: Active Orders 24 hr Category Date Time Status Ankle 2V Lt [CR] Stat Exams 02/24/20 22:19 Ordered Foot Comp Min 3V Lt [CR] Stat Exams 02/24/20 22:19 Ordered - Radiology Interpretation Free Text/Narrative:: Xray take of ankle/foot--no obvious bony injury noted. - Re-Assessments/Exams Free Text/Narrative Re-Assessment/Exam: 02/24/20 22:49 Xray of ankle and foot show no obvious fracture. RAdiology to review. Suspect soft tissue injury based on history and exam. Crutches given so patient can avoid weightbearing tonight and tomorrow. To tray to advance activity as tolerated Wednesday. Work slip for Wednesday given. If she is still having significant issues that will impact her ability to work she will need to follow up at the clinic for recheck and further restrictions Wednesday or Wednesday. Single dose Tramadol and IM Toradol given. Ice/Tylenol/Ibuprofen for pain as needed. Departure - Departure Time of Disposition: 22:52 Disposition: Home, Self-Care 01 Condition: Good Clinical Impression: Injury of left ankle and foot Qualifiers: Encounter type: initial encounter Qualified Code(s): S99.912A - Unspecified injury of left ankle, initial encounter; S99.922A - Unspecified injury of left foot, initial encounter - Discharge Information *PRESCRIPTION DRUG MONITORING PROGRAM REVIEWED*: Not Applicable *COPY OF PRESCRIPTION DRUG MONITORING REPORT IN PATIENT FARHAT: Not Applicable Instructions: Crutch Use, Adult, [id number] Referrals: Rick Melara PA [Primary Care Provider] - Forms: ED Department Discharge, ED Return to Work/School Form Additional Instructions: Ice/elevate for comfort. Use crutches and avoid weight bearing tonight and tomorrow. Advance activity as tolerated Wednesday. If you feel you will not be able to return to work Wednesday, please follow up in clinic Wednesday afternoon or Wednesday for re-evaluation and further work restrictions as needed. OK to take Tylenol and/or Ibuprofen for pain. Follow up otherwise as needed. Sepsis Event Note - Evaluation Sepsis Screening Result: No Definite Risk - Focused Exam Vital Signs: Vital Signs Temp Pulse Resp BP Pulse Ox 02/24/20 22:05 37.2 C 91 16 92/75 96 Date Exam was Performed: 02/24/20 Time Exam was Performed: 22:32 - My Orders Last 24 Hours: My Active Orders 02/24/20 22:19 Ankle 2V Lt [CR] Stat Foot Comp Min 3V Lt [CR] Stat - Assessment/Plan Last 24 Hours: My Active Orders 02/24/20 22:19 Ankle 2V Lt [CR] Stat Foot Comp Min 3V Lt [CR] Stat
== END 2020-02-24 23:10 | disposition home or self-care (01) ==
LOC: LL.ED 22:04
DX: S99.912A Unspecified injury of left ankle, initial encounter (principal); S99.922A Unspecified injury of left foot, initial encounter; J44.9 Chronic obstructive pulmonary disease, unspecified; F41.9 Anxiety disorder, unspecified; E66.9 Obesity, unspecified; Z68.25 Body mass index [BMI] 25.0-25.9, adult; W18.30XA Fall on same level, unspecified, initial encounter
CPT/HCPCS: 73600; 73630; 96372; 99283; A9270; J1885

== ENCOUNTER 2025-07-02 20:00 | Emergency (ER) | payer BC ==
[2025-07-02] MEDS ORDERED: Sodium Chloride 0.9% 10 ML Syringe FLUSH PRN (20:09)
[2025-07-02 20:24] LABS: PLATELET COUNT,PLT 244 K/uL (150-350); RED BLOOD CELL COUNT 4.65 M/uL (3.77-5.09); RED CELL DISTRIBUTION WIDTH 13.0 % (11.2-14.1); WHITE BLOOD CELL COUNT,WBC 12.0 K/uL (4.0-10.2)
[2025-07-02 20:27] LABS: BASOPHILS PERCENT AUTO 0.2 % (0.0-2.0); EOSINOPHILS ABSOLUTE AUTO 0.12 K/uL (0.00-0.50); EOSINOPHILS PERCENT AUTO 1.0 % (0.0-5.0); IMMATURE GRAN PERCENT AUTO 0.2 % (0.0-0.4); LYMPHOCYTES ABSOLUTE AUTO 2.07 K/uL (0.50-3.50); LYMPHOCYTES PERCENT AUTO 17.3 % (10.0-50.0); MONOCYTES ABSOLUTE AUTO 0.65 K/uL (0.00-1.00); MONOCYTES PERCENT AUTO 5.4 % (2.0-14.0); NEUTROPHILS ABSOLUTE AUTO 9.11 K/uL (1.40-7.00); NEUTROPHILS PERCENT AUTO 75.9 % (45.0-80.0)
[2025-07-02 20:28] LABS: BASOPHILS ABSOLUTE AUTO 0.02 K/uL (0.00-0.20); IMMATURE GRAN ABSOLUTE AUTO 0.02 10^3/uL (0.00-0.04)
[2025-07-02 20:48] LABS: POTASSIUM,K 3.9 mmol/L (3.5-5.1); SODIUM,NA 146 mmol/L (136-145)
[2025-07-02 20:49] LABS: ALANINE AMINOTRANSFERASE,ALT 15 U/L (12-78); ASPARTATE AMNIOTRANSFERASE,AST 14 U/L (15-37); BILIRUBIN TOTAL 0.3 mg/dL (0.2-1.0); BLOOD UREA NITROGEN,BUN 17 mg/dL (7-18); CARBON DIOXIDE,CO2 23.5 mmol/L (21.0-32.0); CHLORIDE,CL 111 mmol/L (98-107); CREATININE 1.10 mg/dL (0.51-1.17); ESTIMATED GFR 61 mL/min (>=60); GLUCOSE RANDOM 104 mg/dL (70-99); PROTEIN TOTAL,TP 7.1 g/dL (6.4-8.2)
[2025-07-02 20:51] LABS: INR 1.0 (0.9-1.1); PTT,PARTIAL THROMBOPLSTIN TIME 24.1 SEC (23.8-34.4)
[2025-07-02] MEDS: Aluminum Hydroxide/Magnesium Hydroxide/Simethicone Susp 30 ML Cup PO ONE (21:14)
[2025-07-02] MEDS: Lidocaine 2% Viscous Solution 15 ML UD PO ONE (21:14)
[2025-07-02] MEDS: Take Home: Cyclobenzaprine 10 MG Tab, 4 Tab Pack PO ONE (21:48)
[2025-07-02 22:14] VITALS: BP 102/74; PULSE 74
== END 2025-07-02 21:52 | disposition home or self-care (01) ==
LOC: LL.ED 20:00
DX: S29.011A Strain of muscle and tendon of front wall of thorax, initial encounter (principal); S39.012A Strain of muscle, fascia and tendon of lower back, initial encounter; J44.9 Chronic obstructive pulmonary disease, unspecified; Z90.710 Acquired absence of both cervix and uterus; Z79.899 Other long term (current) drug therapy; X58.XXXA Exposure to other specified factors, initial encounter
CPT/HCPCS: 36415; 71045; 80053; 83605; 83690; 83735; 84484; 85025; 85610; 85730; 93005; 99285; A9270